=== PATIENT | female | born 1965 | race Caucasian/White ===

== ENCOUNTER 2022-02-22 10:12 | Emergency (ER) | payer OTHER, SELFPAY ==
[2022-02-22 10:29] VITALS: BP 130/72; PULSE 72; RESP 20; TEMP 36.3; O2SAT 99
--- NOTE | 2022-02-22 10:37 | ED.BACK ---
HPI - Back Pain/Injury General Chief Complaint: Back Pain/Injury Stated Complaint: Back Pain/Left Leg Pain Time Seen by Provider: 02/22/22 10:35 Source: patient Mode of arrival: ambulatory Limitations: no limitations History of Present Illness HPI Narrative: Ms. Bowers is a 57-year-old female patient presenting to clinic today with complaints of left-sided hip pain with radiation down into her left leg. She reports that this has been worse the last 3 days however she has had this issue for 3 years. She reports when she works she does a lot of pulling from the right to the left and thinks she may have aggravated her back her her hip. She denies any saddle anesthesia or loss of bowel or bladder. Related Data Allergies Allergy/AdvReac Type Severity Reaction Status Date / Time No Known Allergies Allergy Verified 02/22/22 10:28 Review of Systems Review of Systems: Pertinent positives per HPI. Patient denies any fever, chills, rash, headache, visual changes, dizziness, cough, runny nose, sore throat, shortness of breath, chest pain, palpitations, nausea, vomiting, diarrhea, constipation, abdominal pain, or any urinary issues. PMFSH Comments At the time of my signature, I reviewed and agree with the nursing past medical, surgical, social, and family history. There is no relevant family history pertinent to the patient complaint. Exam Narrative: General: Well-developed, well nourished, in no apparent distress Head: Normocephalic, atraumatic. Cardio: Regular rate and rhythm, s1 and s2 normal, no murmur appreciated. Resp: Clear to auscultation bilaterally, no rhonchi, rales, wheezing or rubs. Musculoskeletal: No deformity, tender to palpation over the left SI joint, pain with sitting on her left hip or laying on her left side, she does have some pain with ambulation, grossly normal range of motion, muscle strength strong and equal, peripheral pulse strong, no edema, no cyanosis, normal gait and station Course Course Emergency Course: Portions of this record may have been created with voice recognition software. Level of Care: Express Care Visit Vital Signs Vital signs: Vital Signs Temperature 36.3 C L 02/22/22 10:29 Pulse Rate 72 02/22/22 10:29 Respiratory Rate 20 02/22/22 10:29 Blood Pressure 130/72 02/22/22 10:29 Pulse Oximetry 99 11/17/22 10:29 Oxygen Delivery Room Air 02/22/22 10:29 Temperature 36.3 C L 02/22/22 10:29 Pulse Rate 72 02/22/22 10:29 Respiratory Rate 20 02/22/22 10:29 Blood Pressure 130/72 02/22/22 10:29 Pulse Oximetry 99 02/22/22 10:29 Oxygen Delivery Room Air 02/22/22 10:29 Vital signs reviewed MDM - Back Pain/Injury MDM Narrative Medical decision making narrative: at the time of visit patient is resting in the exam chair. I suspect that she has SI joint dysfunction of the left hip as well as sciatica/ radiculopathy to the left leg. Prescription for tapered prednisone was sent to the pharmacy. Offered Toradol injection in the clinic today but patient declined. She rates her pain a 5/10 currently. Work note was also given. Supportive measures were discussed with the patient she voiced understanding of discharge instructions and agrees to treatment plan. Differential Diagnosis Differential diagnosis: Likely lumbar radiculopathy, sciatica and other ( SI joint dysfunction) Discharge Plan Discharge Clinical Impression: SI (sacroiliac) joint dysfunction, Sciatica of right side Patient Disposition: Home, Self-Care Condition: Stable Instructions: Antibiotic Form, Sciatica (ED), Lower Back Exercises (ED) Additional Instructions: Take any prescription medication only as prescribed- prednisone May use heat or ice to the affected area Consider massage or chiropractor adjustment if this was discussed with provider May use blue emu, lidocaine patches, or asper cream to affected area- do not apply heat or ice directly over cream- can cause bu
== END 2022-02-22 10:45 | disposition home or self-care (01) ==
PROVIDERS: Emergency Provider Nurse Practitioner Family
DX: M53.3 Sacrococcygeal disorders, not elsewhere classified (principal); M54.31 Sciatica, right side
CPT/HCPCS: 99213; G0463

== ENCOUNTER 2022-02-25 14:13 | Emergency (ER) | payer OTHER, SELFPAY ==
[2022-02-25 16:07] VITALS: BP 132/91; PULSE 62; RESP 16; TEMP 36.5; O2SAT 97
--- NOTE | 2022-02-25 16:16 | ED.GENADULT ---
HPI - General Adult General Chief complaint: Upper Respiratory Infection Stated complaint: sob Time Seen by Provider: 02/25/22 16:16 Source: patient Mode of arrival: ambulatory Limitations: no limitations History of Present Illness HPI narrative: 57-year-old female patient presents to the [facility] with complaints of shortness of breath for the past 4-5 days. Patient states she did have some coronavirus about a week ago that she has been taking some TheraFlu 4. Patient states she is currently on steroids right now for a hip/joint pain. Patient states that she feels like she just continuously cannot catch her breath. Denies any fevers, body aches or chills. Denies any abdominal pain, nausea, vomiting or diarrhea. Patient states she has not been having the chest pain mostly just shortness of breath with a cough. Denies coughing up any phlegm that she is aware of. Patient states she has been diagnosed with COPD and did get bronchitis when she was younger. Patient does currently smoke. Patient states that she typically does not follow up with her doctor because she works too much and she is not very good about primary care. Related Data Allergies Allergy/AdvReac Type Severity Reaction Status Date / Time No Known Allergies Allergy Verified 02/22/22 10:28 Review of Systems Review of Systems: CONSTITUTIONAL: Denies fever, chills, or sweats. EYES: Denies visual changes, redness, or discharge. ENT: Denies rhinorrhea, congestion, sore throat, or otalgia. CARDIOVASCULAR: Denies chest pain, palpitations, or edema. RESPIRATORY: Positive cough with dyspnea. GASTROINTESTINAL: Denies abdominal pain, nausea, vomiting, or diarrhea. GENITOURINARY: Denies dysuria or hematuria. SKIN: Denies rash or itching. MUSCULOSKELETAL: Denies back pain, joint pain, or myalgia. NEUROLOGIC: Denies headache, numbness, or weakness. PSYCHIATRIC: Denies anxiety or depression. [facility] Past Medical History Medical History (Updated 02/25/22 @ 17:33 by MARY KAY Pacheco) Asthma Bronchitis COPD (chronic obstructive pulmonary disease) Comments At the time of my signature I agree with nursing past medical history, surgical, social, and family history. There is no relevant family history pertinent to the presenting complaint. Exam Narrative: GENERAL: Well-appearing, well-nourished, and in no acute distress. HEAD: Normocephalic, atraumatic. EYES: PERRLA and EOMI. ENT: Nares clear, no rhinorrhea or epistaxis. Mucous membranes moist. NECK: Supple. No lymphadenopathy CHEST: Patient has decreased lung sounds noted to bilateral lower lobes and tight. Patient is sitting slightly tripod and does have slightly labored breathing noted during exam. Patient is talking in complete sentences. HEART: Regular rate and rhythm. No murmur heard. Normal peripheral pulses. ABDOMEN: Soft, nontender, nondistended, normal active bowel sounds. EXTREMITIES: Normal range of motion. No edema. SKIN: Warm, dry, no rash. NEURO: No focal deficits. Alert and oriented x3. Course Course Level of Care: Express Care Visit Reevaluation(s) Reevaluation #1: Re-evaluate patient after she received her breathing treatment. Patient states she is feeling slightly better. Patient still sitting slightly tripoding and still having slightly labored breathing noted. Lung sounds have been unchanged continues to be decreasing bilateral upper and lower lobes. Discussed with patient that at this time I am concerned she might be having some kind of COPD exacerbation that she might need either a continuous breathing treatment or possibly BiPAP. Discussed with patient that I would advise that she go to the ER for further evaluation. Patient is in agreement daughter will be taking her to the ER. Report has been called to [facility] ER Dr. Gold. Date: 02/25/22 Time: 17:31 Vital Signs Vital signs: Vital Signs Temperature 36.5 C 02/25/22 16:07 Pulse Rate 62 02/25/22 16:07 Respiratory Rate 16
[2022-02-25] MEDS: ALBUTEROL SULFATE NEB 2.5 MG/3 ML INH INHALATION (16:32)
[2022-02-25 17:35] VITALS: PULSE 75; O2SAT 95
== END 2022-02-25 17:35 | disposition short-term general hospital (02) ==
PROVIDERS: Emergency Provider Nurse Practitioner Family
DX: R06.02 Shortness of breath (principal); J44.9 Chronic obstructive pulmonary disease, unspecified
CPT/HCPCS: 94640; 99213; G0463

== ENCOUNTER 2022-02-25 17:52 | Emergency (ER) | payer OTHER, SELFPAY ==
--- NOTE | ~2022-02-25 | CT_ITS ---
EXAMINATION: CTA chest PE protocol DATE: 02/25/2022 20:37 INDICATION: covid+, elevated d dimer TECHNIQUE: Computed tomography angiography (CTA) of the chest was performed with 100 mL Omnipaque-350 intravenous contrast timed to evaluate the pulmonary arteries. Coronal maximum intensity projection 3D-reconstructions were created by the technologist. The dose-length product (DLP) was 139.05 mGy-cm. Automated exposure control and iterative reconstruction technique were employed. COMPARISON: X-ray chest, same date. FINDINGS: Lung parenchyma and airways: Biapical pleural scarring. Mild emphysematous change. Pleura: Unremarkable. Thoracic inlet, axillae and chest wall: Unremarkable. Thoracic aorta: Mild ectasia and arch calcification. Mediastinum: Small hiatal hernia. Heart and pericardium: Normal. Coronary artery calcifications: Absent. Upper abdomen: No significant finding. Bones: No acute osseous finding. Pulmonary arteries: Study quality: Adequate. No pulmonary emboli detected. IMPRESSION: No CT evidence of acute pulmonary embolus. Reviewed, dictated and finalized at location K. ICE ATTENDANT [place]
--- NOTE | ~2022-02-25 | XR_ITS ---
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 RESULT: Lines, tubes, and devices: None. Lungs and pleura: Clear. Cardiomediastinal silhouette: Stable. Other: No acute osseous or upper abdominal finding. IMPRESSION: No acute cardiopulmonary process. Reviewed, dictated and finalized at location K. AND MAKEUP DESIGNER
[2022-02-25 18:19] VITALS: BP 131/85; PULSE 68; RESP 18; TEMP 36.8; O2SAT 96
--- NOTE | 2022-02-25 18:22 | ECG_ITS ---
Measurements Intervals [place] Rate: 63 P: 83 WV: 125 QRS: 81 QRSD: 90 T: 83 QT: 424 QTc: 435 Interpretive Statements SINUS RHYTHM POSSIBLE LEFT ATRIAL ENLARGEMENT BASELINE ARTIFACT- I, II, AVR, AVL BORDERLINE ECG NO PREVIOUS ECG AVAILABLE FOR COMPARISON Electronically Signed On 02-26-2022 6:40:14 PRODUCT ARCHITECT by Branden Leo D.O.
[2022-02-25 19:19] LABS: Influenza A QL RT-PCR Negative (Negative); Influenza B QL RT-PCR Negative (Negative); RSV RNA, RT-PCR Negative (Negative); SARS-CoV-2 RNA PCR Positive
--- NOTE | 2022-02-25 19:29 | ED.GENADULT ---
HPI - General Adult General Chief complaint: Shortness of Breath/Dyspnea Stated complaint: shortness of breath - sent from Time Seen by Provider: 02/25/22 18:52 History of Present Illness HPI narrative: 57-year-old female history of COPD presenting the emergency department for evaluation of worsening shortness of breath. Patient states over the last 3 days she has had worsening exertional shortness of breath. Patient states when she exerts results she has increased cough and weakness. Patient states she has not been running any fevers. Patient states that she does still smoke and is not on any oxygen at home. Patient first went to the urgent care and was treated with a breathing treatment that did not significantly help her symptoms. Patient states her last exacerbation was approximately 6 to 7 years ago. Related Data Allergies Allergy/AdvReac Type Severity Reaction Status Date / Time No Known Allergies Allergy Verified 02/25/22 17:53 Review of Systems Review of Systems: CONSTITUTIONAL: Denies fever, chills, or sweats. EYES: Denies visual changes, redness, or discharge. ENT: Denies rhinorrhea, congestion, sore throat, or otalgia. CARDIOVASCULAR: Denies chest pain, palpitations, or edema. RESPIRATORY: Cough and shortness of breath GASTROINTESTINAL: Denies abdominal pain, nausea, vomiting, or diarrhea. GENITOURINARY: Denies dysuria or hematuria. SKIN: Denies rash or itching. MUSCULOSKELETAL: Denies back pain, joint pain, or myalgia. NEUROLOGIC: Denies headache, numbness, or weakness. PMFSH Past Medical History Medical History (Updated 02/25/22 @ 21:19 by Sancho Gold MD) Asthma Bronchitis COPD (chronic obstructive pulmonary disease) Exam Narrative: APPEARANCE: Well appearing, no pain, no distress, well-nourished. HEAD: normocephalic, atraumatic. EYES: PERRLA/EOMI, conjunctivae clear. NOSE: Normal no drainage EARS:TMS clear with good light reflex. THROAT: Pharynx clear, no exudate. NECK: Supple. No adenopathy, no masses. RESPIRATORY: Decreased lung sounds bilaterally. CARDIOVASCULAR: Regular rate and rhythm without murmurs rubs or gallops. ABDOMINAL: Soft, nontender, nondistended, normal bowel sounds MUSCULOSKELETAL: Moves all extremities. Strength/ROM intact, No edema, No calf tenderness. NEURO: Alert. Cranial nerves II through XII intact. Grossly intact SKIN: Warm, dry. Normal Color Course Course Emergency Course: Patient's D-dimer was elevated. Patient CT was negative for pulm embolism. Patient did test positive for COVID. Patient is afebrile with no leukocytosis. Patient's oxygen has been stable. Patient was requesting discharge to home. Patient was provided albuterol and Tessalon Perles for home. Patient was educated on reasons to return to the emergency department. All questions and concerns were addressed. Vital Signs Vital signs: Vital Signs Temperature 98.2 F 02/25/22 18:19 Pulse Rate 68 02/25/22 18:19 Respiratory Rate 18 02/25/22 18:19 Blood Pressure 131/85 02/25/22 18:19 Pulse Oximetry 96 02/25/22 18:19 Temperature 98.2 F 02/25/22 18:19 Pulse Rate 59 L 02/25/22 21:11 Respiratory Rate 16 02/25/22 21:11 Blood Pressure 140/89 02/25/22 21:11 Pulse Oximetry 98 02/25/22 21:11 Medical Decision Making Vital Signs Vital Signs: Vital Signs Temperature 98.2 F 02/25/22 18:19 Pulse Rate 68 02/25/22 18:19 Respiratory Rate 18 02/25/22 18:19 Blood Pressure 131/85 02/25/22 18:19 Pulse Oximetry 96 02/25/22 18:19 Temperature 98.2 F 02/25/22 18:19 Pulse Rate 59 L 02/25/22 21:11 Respiratory Rate 16 02/25/22 21:11 Blood Pressure 140/89 02/25/22 21:11 Pulse Oximetry 98 02/25/22 21:11 Lab Data Result diagrams: 02/25/22 19:39 02/25/22 19:39 Labs: Lab Results 02/25/22 02/25/22 02/25/22 Range/Units 18:34 19:39 19:39 WBC 4.6 (4.5-10.0) K/mm3 RBC 4.52 (4.2-5.4) M/mm3 H
--- NOTE | 2022-02-25 19:35 | PC.NURSE ---
shari [phone]- daughter in law
[2022-02-25 19:46] LABS: Basophils Percent Auto 0.2 % (0.2-1.2); Hematocrit 40.4 % (37.0-47.0); Hemoglobin 13.9 g/dL (12.0-15.0); Immature Granulocyte Absolute 0.01 K/mm3 (0.00-0.031); Immature Granulocyte Percent A 0.2 % (0-0.5); Lymphocytes Absolute Auto 1.07 K/mm3 (0.9-3.2); Lymphocytes Percent Auto 23.3 % (18.3-44.2); Mean Corpuscular HGB Conc 34.4 g/dl (32-36); Mean Corpuscular Hemoglobin 30.8 pg (26-34); Mean Corpuscular Volume 89.4 fl (80-100); Monocytes Absolute Auto 0.2 K/mm3 (0.1-0.6); Neutrophils Absolute Auto 3.3 K/mm3 (1.3-6.7); Neutrophils Percent Auto 71.3 % (45.5-73.1); Platelet Count Result 217 k/mm3 (150-375); Red Blood Count 4.52 M/mm3 (4.2-5.4); Red Cell Distribution Width 13.3 % (11.5-14.5); White Blood Count 4.6 K/mm3 (4.5-10.0)
[2022-02-25 19:59] LABS: Alanine Aminotransferase 26 U/L (6-35); Albumin Level 4.2 g/dL (3.5-5.1); Alkaline Phosphatase 66 U/L (38-126); Anion Gap 8 mmol/L (8-16); Aspartate Amino Transferase 23 U/L (14-36); Bilirubin,Total 0.3 mg/dL (0.2-1.3); Blood Urea Nitrogen 13 mg/dL (7-17); Calcium 9.1 mg/dL (8.4-10.2); Carbon Dioxide 25 mmol/L (22-30); Chloride 99 mmol/L (98-107); Estimated CRCL calculation 82 ml/min; Estimated Glomerular Filt Rate > 60; Glucose 115 mg/dL (65-110); Sodium 132 mmol/L (137-145)
[2022-02-25 20:04] LABS: D Dimer 1.74 ug/mL (<0.48)
[2022-02-25 20:21] VITALS: PULSE 55
[2022-02-25 20:42] VITALS: BP 145/86; PULSE 57; RESP 17; O2SAT 98
[2022-02-25 21:11] VITALS: BP 140/89; PULSE 59; RESP 16; O2SAT 98
== END 2022-02-25 21:15 | disposition home or self-care (01) ==
PROVIDERS: Nurse Practitioner Family; Emergency Provider Emergency Medicine
DX: U07.1 COVID-19 (principal); J44.9 Chronic obstructive pulmonary disease, unspecified; R94.31 Abnormal electrocardiogram [ECG] [EKG]
CPT/HCPCS: 36415; 71046; 71275; 80053; 85025; 85380; 87637; 93005; 99284; Q9967

== ENCOUNTER 2023-04-17 14:32 | Emergency (ER) | payer OTHER, SELFPAY ==
[2023-04-17 14:40] VITALS: BP 109/85; PULSE 90; RESP 16; TEMP 37.4; O2SAT 98
--- NOTE | 2023-04-17 14:50 | ED.BACK ---
HPI - Back Pain/Injury General Chief Complaint: Back Pain/Injury Stated Complaint: Back Pain Time Seen by Provider: 04/17/23 14:50 Source: patient and RN notes reviewed Mode of arrival: ambulatory Limitations: no limitations History of Present Illness HPI Narrative: 58-year-old female presents with concern for left low back night. She reports it has been going on for some time, she has tried ibuprofen and lidocaine patches. Reports today a lidocaine patch did not work. She denies weakness in any extremity. Reports tingling in the left leg. She reports nausea without vomiting. She reports pain that radiates from the back toward the abdomen. She denies loss of bowel or bladder function denies perianal anesthesia. She reports pain is worse when she sitting for a long period of time or when she is standing for a long period of time she denies other exacerbating factors. MD elicited complaint: back pain Related Data Allergies Allergy/AdvReac Type Severity Reaction Status Date / Time No Known Allergies Allergy Verified 04/17/23 14:53 Review of Systems Review of Systems: CONSTITUTIONAL: Denies malaise, chills, sweats, or fever. CARDIOVASCULAR: Denies chest pain, palpitations, or edema. RESPIRATORY: Denies cough or dyspnea. GASTROINTESTINAL: Denies abdominal pain, vomiting, diarrhea, loss of bowel function. Reports nausea GENITOURINARY: Denies dysuria, hematuria, loss of bladder function. Reports urine frequency SKIN: Denies rash or itching. MUSCULOSKELETAL: Reports low back pain, reports tingling of the left leg NEUROLOGIC: Denies numbness, weakness, or headache. All systems reviewed & are unremarkable except as noted in HPI and below PMFSH Past Medical History Medical History (Updated 04/17/23 @ 15:15 by oSha Arango NP) Asthma Bronchitis COPD (chronic obstructive pulmonary disease) Comments At time of signature, agree with nursing past medical, surgical, social and family history. There is no relevant family history pertinent to the presenting complaint Exam Narrative: GENERAL: Well-appearing, well-nourished, and in no acute distress. HEAD: Normocephalic, atraumatic. EYES: PERRLA and EOMI. NECK: Supple. No lymphadenopathy. CHEST: Clear to auscultation. No respiratory distress. HEART: Regular rate and rhythm. Distal pulses palpable and equal, cap refill <3 seconds ABDOMEN: Soft, nontender, nondistended, normal active bowel sounds, no palpable or pulsatile masses. Left cVA tenderness MUSCULOSKELETAL: Normal range of motion and strength in all extremities; 5/5 strength with hip flexion and extension, dorsiflexion and extension, knee flexion and extension, plantar flexion and extension. Normal sensation in dermatomal distributions with sensitivity to light touch and pain. No midline back tenderness to palpation. No paraspinal tenderness. Transfers from lying to sitting to standing. SKIN: Warm, dry, no rash. No ecchymosis, erythema, open wounds to back. NEURO: No focal deficits. Alert and oriented x3. Reflexes intact. Normal gait. PSYCH: Normal mood and affect Course Course Emergency Course: UA is normal, however due to CVA tenderness in nausea I will culture the urine. Will not treat for UTI at this time Patient is aware of diagnosis, understands and agrees to treatment plan. Anticipatory guidance given. Patient agrees to follow-up as directed and is aware of reasons to seek care at the emergency department. Portions of this record may have been created with voice recognition software Level of Care: Express Care Visit Vital Signs Vital signs: Vital Signs Temperature 99.4 F 04/17/23 14:40 Pulse Rate 90 04/17/23 14:40 Respiratory Rate 16 04/17/23 14:40 Blood Pressure 109/85 04/17/23 14:40 Pulse Oximetry 98 04/17/23 14:40 Oxygen Delivery Room Air 04/17/23 14:40 Temperature 99.4 F 04/17/23 14:40 Pulse Rate 90 04/17/23 14:40 Respiratory Rate 16 04/17/23 14:40 Blood P
== END 2023-04-17 15:23 | disposition home or self-care (01) ==
PROVIDERS: Emergency Provider Nurse Practitioner
DX: M54.50 Low back pain, unspecified (principal); J44.9 Chronic obstructive pulmonary disease, unspecified
CPT/HCPCS: 81003; 87086; 99213; G0463

== ENCOUNTER 2024-07-06 10:14 | Emergency (ER) | payer OTHER, SELFPAY ==
--- NOTE | ~2024-07-06 | XR_ITS ---
Clinical Indication: Cough PA and lateral views of the chest: Comparison: 02/25/2022 Findings: The lungs are clear, without evidence of focal consolidation or pleural effusion. Probable COPD. Cardiomediastinal silhouette is within normal limits. Bones and soft tissues are unremarkable. Impression: Clear lungs. Probable COPD. Reviewed, dictated and finalized at location . Impression: Clear lungs. Probable COPD.
[2024-07-06 10:26] VITALS: BP 121/73; PULSE 83; RESP 16; TEMP 36.2; O2SAT 97
--- NOTE | 2024-07-06 10:58 | ED.URI ---
HPI - URI/Sore Throat General Chief Complaint: Upper Respiratory Infection Stated Complaint: head cold , hard time breathing, asthmatic Time Seen by Provider: 07/06/24 10:58 Source: patient Mode of arrival: ambulatory Limitations: no limitations History of Present Illness HPI Narrative: 59-year-old female presents with complaint of nasal congestion, sinus pressure, bilateral ear pain, coughing for the past 10 days. Patient reports shortness of breath with exertion. Has been using her friend's [id number] inhaler. Patient denies history of asthma. Is a current everyday smoker. Afebrile. Denies chest pain. All systems reviewed and negative except as noted above. Related Data Allergies Allergy/AdvReac Type Severity Reaction Status Date / Time No Known Allergies Allergy Verified 07/06/24 10:25 Review of Systems Review of Systems: CONSTITUTIONAL: Denies fever, chills, or sweats. reports fatigue. EYES: Denies visual changes, redness, or discharge. ENT: Reports rhinorrhea, congestion, sinus pressure, postnasal drainage, ear pressure. Denies sore throat CARDIOVASCULAR: Denies chest pain, palpitations, or edema. RESPIRATORY: Reports cough and dyspnea with exertion. GASTROINTESTINAL: Denies abdominal pain, nausea, vomiting, or diarrhea. GENITOURINARY: Denies dysuria or hematuria. SKIN: Denies rash or itching. MUSCULOSKELETAL: Denies back pain, joint pain, or myalgia. NEUROLOGIC: Denies headache, numbness, or weakness. PSYCHIATRIC: Denies anxiety or depression. All other systems reviewed are negative, except as documented in HPI. [facility] Past Medical History Medical History (Updated 07/06/24 @ 11:31 by Katey Olivo NP) COPD (chronic obstructive pulmonary disease) Bronchitis Asthma Comments At time of signature, agree with nursing past medical, surgical, social and family history. There is no relevant family history pertinent to the presenting complaint. Exam Narrative: GENERAL: This is a well-nourished, well-developed patient, in no apparent distress. HEAD: normocephalic, atraumatic. EYES: PERRL. Sclera clear/white. Vision is grossly intact. EARS: External ears normal, auditory canals clear and without drainage, fluid bilateral TMs without erythema or perforation. Hearing grossly intact. NOSE: External nose normal with congestion, purulent nasal drainage, erythema swelling to bilateral nares. Frontal sinus tenderness on palpation THROAT: Mucous membranes moist, postnasal drainage NECK: Neck supple, non-tender without lymphadenopathy, masses or thyromegaly. CARDIOVASCULAR: Regular rate and rhythm without murmurs, gallops, or rubs. RESPIRATORY: decreased throughout all lung faustin. Breath sounds equal bilaterally. No wheezes, rales, or rhonchi. SKIN: warm, Dry, intact with no suspicious lesions or rash, good texture and turgor. NEURO: awake, alert, and oriented to person, place and time. There were no obvious focal neurologic abnormalities. EXTREMITIES: No joint tenderness, effusion, or edema noted. Course Course Level of Care: Express Care Visit Vital Signs Vital signs: Vital Signs Temperature 36.2 C L 07/06/24 10:26 Pulse Rate 83 07/06/24 10:26 Respiratory Rate 16 07/06/24 10:26 Blood Pressure 121/73 07/06/24 10:26 Pulse Oximetry 97 07/06/24 10:26 Oxygen Delivery Room Air 07/06/24 10:26 Temperature 36.2 C L 07/06/24 10:26 Pulse Rate 83 07/06/24 10:26 Respiratory Rate 16 07/06/24 10:26 Blood Pressure 121/73 07/06/24 10:26 Pulse Oximetry 97 07/06/24 10:26 Oxygen Delivery Room Air 07/06/24 10:26 Reviewed MDM - URI/Sore Throat MDM Narrative Medical decision making narrative: discussed x-ray results with patient. Will treat patient for bacterial sinusitis. Will give patient albuterol inhaler for patient has cough, possible COPD. Recommend follow-up with primary care physician. Patient is alert, nontoxic. No respiratory distress. Please be advised this is a medical document. It is intended for [id number] communication. It is written in medical language and may contain unfamiliar abbreviations or verbiage. Medical documents are intended to carry relevant information, facts as evident, and the clinical opinion of the practitioner at the time of the encounter. This report may have been done utilizing a voice recognition system. Attempts have been made to correct errors. However, there may be uncorrected grammatical, spelling, and recognition errors present. The file time of this note does not necessarily represent the time of service. Imaging Data My impression: Agree with radiologist Radiologist's impression: cc: AUTO RENTAL SUPERVISOR PHYSICIAN; Katey Olivo APRN~ Clinical Indication: Cough PA and lateral views of the chest: Comparison: 02/25/2022 Findings: The lungs are clear, without evidence of focal consolidation or pleural effusion. Probable COPD. Cardiomediastinal silhouette is within normal limits. Bones and soft tissues are unremarkable. Impression: Clear lungs. Probable COPD. Discharge Plan Discharge Clinical Impression: Acute bacterial sinusitis, COPD (chronic obstructive pulmonary disease) Patient Disposition: Home, Self-Care Condition: Stable Instructions: Antibiotic Form, Sinusitis (ED), COPD (Chronic Obstructive Pulmonary Disease) (ED) Additional Instructions: The x-ray of your chest was negative for pneumonia. The chest x-ray did show probable COPD. Establish with a primary care physician for further evaluation. Take medications as prescribed. Drink plenty of water and rest. See your doctor if symptoms are not improving. Patient Language: Nigerian Prescriptions: New doxycycline hyclate 100 mg capsule 100 mg PO BID 7 Days Qty: 14 0RF benzonatate 200 mg capsule 200 mg PO TID PRN (Reason: cough) Qty: 20 0RF prednisone 20 mg tablet 40 mg PO DAILY 5 Days Qty: 10 0RF albuterol sulfate 90 mcg/actuation HFA aerosol inhaler 2 puff inhalation Q4-6H PRN (Reason: shortness of breath or wheezing) Qty: 8.5 0RF Follow-up/Referrals: PHYSICIAN,AUTO RENTAL SUPERVISOR [Primary Care Provider] - Stand Alone Forms: Work/School Release IP Time of Disposition: 11:34
== END 2024-07-06 11:41 | disposition home or self-care (01) ==
PROVIDERS: Emergency Provider Nurse Practitioner Family
DX: J01.90 Acute sinusitis, unspecified (principal); J44.9 Chronic obstructive pulmonary disease, unspecified; F17.200 Nicotine dependence, unspecified, uncomplicated
CPT/HCPCS: 71046; 99213; G0463

== ENCOUNTER 2024-07-30 16:08 | Outpatient (CLI) | payer OTHER, SELFPAY ==
--- NOTE | ~2024-07-30 | US_ITS ---
EXAMINATION: US thyroid DATE: 07/30/2024 16:29 INDICATION: Abnormal thyroid nodules TECHNIQUE: Multiple ultrasound images of the thyroid were obtained. COMPARISON: None. FINDINGS: The right thyroid lobe measures 3.4 x 1.9 x 1.0 cm. The left thyroid lobe measures 2.7 x 1.4 x 1.0 cm. The isthmus measures 0.26cm in anterior to posterior dimension. There is coarse heterogeneous echotexture throughout the thyroid gland. No discrete nodules identified. Normal vascular flow is present. IMPRESSION: Coarse heterogeneous echotexture throughout the thyroid gland without discrete nodules identified. Reviewed, dictated and finalized at location A.
== END 2024-07-30 16:09 | disposition home or self-care (01) ==
LOC: MICIMG 16:11
PROVIDERS: PCP Emergency Medicine; Visit Provider Emergency Medicine
DX: R79.89 Other specified abnormal findings of blood chemistry (principal)
CPT/HCPCS: 76536

== ENCOUNTER 2024-10-03 08:17 | Outpatient (CLI) | payer OTHER, SELFPAY ==
--- NOTE | ~2024-10-03 | US_ITS ---
Ultrasound of the Abdominal Aorta INDICATION: Abdominal aortic aneurysm TECHNIQUE: Grayscale, color Doppler, and pulsed Doppler images of the aorta and common iliac arteries were obtained. COMPARISON: None. FINDINGS: Maximum vascular dimensions are as follows: Proximal aorta: 2.8 cm Mid aorta: 4.0 cm Distal aorta: 3.3 cm Right common iliac artery: 0.9 cm Left common iliac artery: 0.8 cm There is mural thrombus within the mid abdominal aortic aneurysm. IMPRESSION: Mid abdominal aortic aneurysm measures 4.0 cm in maximum diameter, with circumferential mural thrombu s present. Reviewed, dictated and finalized at location . IMPRESSION: Mid abdominal aortic aneurysm measures 4.0 cm in maximum diameter, with circumf erential mural thrombus present.
== END 2024-10-03 08:18 | disposition home or self-care (01) ==
PROVIDERS: PCP Emergency Medicine; Visit Provider Emergency Medicine
DX: I71.40 Abdominal aortic aneurysm, without rupture, unspecified (principal)
CPT/HCPCS: 76775

== ENCOUNTER 2024-11-19 15:32 | Outpatient (CLI) | payer OTHER, SELFPAY ==
--- NOTE | 2024-11-19 15:15 | CY_PTH ---
PATIENT: Deidra Bowers LOC: [facility] U#:[id number] AGE/SX: 59/F ROOM: RE11/19/[address]: Markos Gordon MD : 1965 BED: DIS: 11/19/2024 SPEC #: [id number] RECD: 11/20/24 10:23 STATUS: BEE REQ #: [id number] GRIFFIN: 11/19/24 15:[address]: Markos Gordon DEPT: [facility] Cytology RECD BY: Krystina Han ENTERED: 11/20/24 10:28 SP TYPE: Cytology OTHR DR: Brett Wagner MD Tissues: A - Flow Procedures: Flow Cytometry
--- OUTSIDE RECORDS SUMMARY | 2024-11-19 15:35 | XMS_ITS | Clinical Summary ---
Author Organization [facility] Address [address] [place] [address] Phone Care Team Providers Care Balance Recesser Name Role Phone Unavailable Primary Care Provider Unavailabl e Allergies No known active allergies Medications albuterol sulfate HFA 90 mcg/actuation aerosol inhaler INHALE 2 PUFFS BY MOUTH EVERY 4 HOURS NEEDED FOR WHEEZING OR SHORTNESS OF BREATH OR COUGHING 5 Active aspirin (ECOTRIN EC) 81 mg Tablet, Delayed Release (E.C.) Take 81 mg by mouth daily. Active atorvastatin (LIPITOR) 10 mg tablet Take 10 mg by mouth daily. 5 Active ergocalciferol (VITAMIN D2) 50,000 unit capsule Take 50,000 Units by mouth every 7 days. 5 Active fluticasone-ume clidinium-vilan terol (TRELEGY ELLIPTA) 100-62.5-25 mcg Disk with Device Take 1 Puff by inhalation daily. 5 Active Active Problems No known active problems Encounters Date Type Department Care Team Description 11/19/2024 3:00 PM CDT Office Visit [facility] Oncology and Hematology [facility] [address] [place] [address] Markos Gordon MD Lymphocytopenia (Primary Dx) 11/19/2024 Abstract [facility] Oncology and Hematology [facility] [address] [place] [address] Markos oGrdon MD from Last 3 Months Family History Medical History Relation Name Comments No Known Problems Brother 1 No Known Problems Brother 2 No Known Problems Child 6 children Heart Disease Mother No Known Problems Sister 1 Heart Disease Sister 2 No Known Problems Sister 3 No Known Problems Sister 4 Relation Name Status Comments Brother 1 Alive Brother 2 Alive Child 6 children Alive Mother Sister 1 Sister 2 Alive Sister 3 Alive Sister 4 Alive Social History Tobacco Use Types Packs/Day Years Used Date Smoking Tobacco: Every Day Cigarettes 1.5 40.4 Started: 07/07/1984 Smokeless Tobacco: Never Tobacco Cessation:Ready to Q uit: Not Asked; Counseling Given: Not Answered Alcohol Use Standard Drinks/Week Comments Not Currently 0 (1 standard drink = 0.6 oz pur e alcohol) Comments Unknown Sex and Gender Information Value Date Recorded Sex Assigned at Not on file 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 Gender Identity Not on file Sexual Orientation Not on file Last Filed Vital Signs Vital Sign Reading Time Taken Comments Blood Pressure 119/77 11/19/2024 2:52 PM CDT Pulse 80 11/19/2024 2:52 PM CDT Temperature 37 C (98.6 F) 11/19/2024 2:52 PM CDT Respiratory Rate 15 11/19/2024 2:52 PM CDT Oxygen Saturation 94% 11/19/2024 2:52 PM CDT Inhaled Oxygen Concentration - - Weight 49.1 kg (108 lb 3.2 oz) 11/19/2024 2:52 P M CDT Height 157.5 cm (5' 2) 11/19/2024 2:52 PM CDT Body Mass Index 19.79 11/19/2024 2:52 PM CDT Plan of Treatment Upcoming Encounters Date Type Department Care Team (Late st Contact Info) Description 12/03/2024 4:30 PM CDT Telephone Check Up [facility] Oncology and Hematology - [facility] [address] [facility] [address] [place] [address] Markos Gordon MD [address] [facility] [address] [place] [address] Health Maintenance Due Date Last Done Comments DTAP/TDAP/TD VACCINES (1 - Tdap) 02/06/1984 HEPATITIS B VACCINES (1 of 3 - 19+ 3-dose series) 01/08 HPV/Cotest (21-29) 1986 CERVICAL CANCER SCREENING 1995 HPV/Cotest (30-65) 1995 PAP SMEAR 1995 BREAST CANCER SCREENING 2005 COLORECTAL SCREENING 2010 Colorectal Cancer Screening 2010 FIT-DNA Q 3 years 2010 FIT/FOBT Q 1 year 2010 Flex Sig/CT Colonography Q 5 years 2010 ZOSTER VACCINE (1 of 2) 2015 INFLUENZA VACCINE (#1) 2024 Preventative Visit- Commercial Completed 08/17/2024 Insurance [employer] [facility] [employer] [id number]
--- OUTSIDE RECORDS SUMMARY | 2024-11-19 15:36 | XMS_ITS | Clinical Summary ---
Author Organization [email or web address] Address [address] [place] [address] Care Team Providers Care Admissions Rn Name Role Phone Brett Wagner MD Primary Care Provider [phone] Source Comments [facility],non-owned Affiliates and Associated Physician Practices is amultiple site organization consisting of ambulatory clinics and hospital sitesin [place], [place], [place] and [place]. This disclosure is being madepursuant to the Care Everywhere program and may not contain all information available regarding this patient. Last updated 17.[facility] Allergies No known active allergies Medications * Be aware that medications may not be up to date on this document. Alwaysverify current medications with the patient. albuterol HFA (Proventil; Ventolin; Proair) 108 (90 Base) MCG/ACT inhaler Inhale 2 (two) puffs by mouth every 4 hours as needed 08/27/2024 Active aspirin EC (Ecotrin) 81 MG tablet Take 1 (one) tablet by mouth once daily Active atorvastatin (Lipitor) 10 MG tablet Take 1 (one) tablet by mouth once daily 10/06/2024 Active vitamin D, ergocalciferol, (Drisdol) 1.25 MG (88592 UT) capsule Take 1 (one) capsule by mouth Active Trelegy Ellipta 100-62.5-25 MCG/ACT inhaler Inhale 1 (one) puff by mouth once daily 08/27/2024 Active nicotine (Nicoderm CQ) 14 MG/24HR patch Apply 1 (one) patch to skin every 24 hours 08/27/2024 Active Spacer/Aero-Hol ding Chambers (Valved Holding Chamber) SAFIA USE WITH INHALERS DIRECTED 07/21/2024 Active Active Problems Problem Noted Date Diagnosed Date Hypothyroidism, acquired 11/06/2024 Hyponatremia 11/06/2024 Encounters Date Type Department Care Team Description 11/06/2024 2:20 PM CDT Office Visit [facility] - Endocrinology [address] [place] [phone] Scarlet Mcleod MD Hypothyroidism, acquired (Primary Dx); Hyponatremia 11/06/2024 Travel from Last 3 Months Social History Tobacco Use Types Packs/Day Years Used Date Smoking Tobacco: Never Assessed Comments Unknown Sex and Gender Information Value Date Recorded Sex Assigned at Not on file Legal Sex Female 5:57 AM YOUTH AGENT Gender Identity Not on file Sexual Orientation Not on file Last Filed Vital Signs Vital Sign Reading Time Taken Comments Blood Pressure 133/85 11/06/2024 2:13 PM CDT Pulse 71 11/06/2024 2:13 PM CDT Temperature - - Respiratory Rate - - Oxygen Saturation 94% 11/06/2024 2:13 PM CDT Inhaled Oxygen Concentration - - Weight 49 kg (108 lb) 11/06/2024 2:13 PM CDT Height - - Body Mass Index - - Plan of Treatment Upcoming Encounters Date Type Department Care Team (Late st Contact Info) Description 03/09/2025 3:20 PM YOUTH AGENT Office Visit [facility] - Endocrinology [address] [place] [phone] Scarlet Mcleod MD [address] [place] [phone] Health Maintenance Due Date Last Done Comments COLOGUARD (AGES 45-75) - COL ON CA SCREENING 1965 COLON MONITORING 1965 COLONOSCOPY - COLON CA SCREENING 1965 CT COLONOGRAPHY - COLON CA SCREENING 1965 Colorectal Cancer Screening 1965 FIT - COLON CA SCREENING 1965 FLEX SIG - COLON CA SCREENING 1965 MAMMOGRAM 1965 HIV SCREENING 02/06/1980 HEPATITIS C SCREENING 02/01/1983 DTAP/TDAP/TD VACCINES (1 - Tdap) 02/06/1984 HEPATITIS B VACCINE (1 of 3 - 19+ 3-dose series) 02/06/1984 PNEUMOCOCCAL VACCINE 50+ (1 of 1 - PCV) 2015 ZOSTER VACCINE (1 of 2) 2015 COVID-19 VACCINE (1 - 2023-2 5 season) 2023 DEPRESSION SCREENING 04/08/2024 INFLUENZA VACCINE (#1) 2024 PAP SMEAR 08/18/2027 08/17/2024, 08/17/2024 HIB VACCINE Aged Out No longer eligi ble based on patient's age to complete this topic HPV VACCINE Aged Out No longer eligi ble based on patient's age to complete this topic MENINGOCOCCAL (Group B) VACCINE SHARED DECISION-MAKING Aged Out No longer eligible based on patient's age to complete this topic MENINGOCOCCAL GROUPS A/C/Y/W VACCINE Aged Out No longer eligible b ased on patient's age to complete this topic Insurance Care Teams Admissions Rn Relationship Specialty Start Date End Date Brett Wagner MD [facility] [address] [address] PCP - General Family Medicine 07/24/24
--- OUTSIDE RECORDS SUMMARY | 2024-11-19 15:36 | XMS_ITS | Clinical Summary ---
Author Organization [facility] Address [address] [place] [phone] Phone Care Team Providers Care Grinder Gear Name Role Phone Brett Wagner MD Primary Care Provider [phone] Allergies No known active allergies Medications ergocalciferol (VITAMIN D-2) 1.25 MG (29341 UT) capsule Take 50,000 Units by mouth 1 (one) time per week Active albuterol HFA (PROVENTIL HFA) 108 (90 Base) MCG/ACT inhaler Inhale 2 puffs every 6 (six) hours if needed for wheezing Active Fluticasone-Ume clidin-Vilant (TRELEGY ELLIPTA IN) Inhale if needed Active Active Problems Problem Noted Date Diagnosed Date Hyponatremia 08/05/2024 Vitamin D deficiency 08/05/2024 Encounters Date Type Department Care Team Description 09/08/2024 3:40 PM CDT Office Visit [facility] [address] [place] [phone] Maldonado Khan MD Hyponatremia (Primary Dx) 08/27/2024 Orders Only [facility] [address] [place] [phone] Maldonado Khan MD from Last 3 Months Family History Medical History Relation Comments Atrial fibrillation Mother COPD Mother Relation Status Comments Mother Social History Tobacco Use Types Packs/Day Years Used Date Smoking Tobacco: Every Day Cigarettes 1 30.3 Started: 08/05/1994 Smokeless Tobacco: Never Alcohol Use Standard Drinks/Week Comments Never 0 (1 standard drink = 0.6 oz pur e alcohol) Comments Unknown Sex and Gender Information Value Date Recorded Sex Assigned at Female 08/05/2024 1:12 PM MDT Legal Sex Female 1:11 PM MDT Gender Identity Female 08/05/2024 1:12 PM MDT Sexual Orientation Not on file Last Filed Vital Signs Vital Sign Reading Time Taken Comments Blood Pressure 121/81 09/08/2024 3:32 PM CDT Pulse 69 09/08/2024 3:32 PM CDT Temperature - - Respiratory Rate - - Oxygen Saturation - - Inhaled Oxygen Concentration - - Weight 48.1 kg (106 lb) 09/08/2024 3:32 PM CDT Height 157.5 cm (5' 2) 09/08/2024 3:32 PM CDT Body Mass Index 19.39 09/08/2024 3:32 PM CDT Plan of Treatment Upcoming Encounters Date Type Department Care Team ([facility] st Contact Info) Description 03/10/2025 2:00 PM CHEMICAL RADIATION TECHNICIAN Office Visit [facility] [address] [facility] [address] [place] [address] Maldonado Khan MD [address] [phone] Health Maintenance Due Date Last Done Comments Pneumococcal PPSV23 Medium Risk Adult (1 of 1 - PPSV23 ) 02/06/1984 Influenza Vaccine (#1) 2024 Procedures Procedure Name Priority Date/Time Associated Diagnosis Comments OSMOLALITY URINE Routine 08/27/2024 7:52 AM CDT OSMOLALITY, SERUM Routine 08/27/2024 7:5 2 AM CDT SODIUM W/ CREATININE, URINE, RANDOM Routine 08/27/2024 7:52 AM CDT T3 (TRIIODOTHYRONINE), TOTAL, SERUM Routine 08/27/2024 7:52 AM CDT CORTISOL, A.M., SERUM Routine 08/27/2024 7:52 AM CDT BASIC METABOLIC PANEL (BMP) Routine 08/27/2024 7:52 AM CDT THYROID STIMULATING HORMONE (TSH), SERUM Routine 08/27/2024 7:52 AM CDT T4 FREE, SERUM Routine 08/27/2024 7:52 AM CDT from Last 3 Months Results * (ABNORMAL) Basic Metabolic Panel (BMP) (08/27/2024 7:52 AM CDT) Pathologist [facility] Glucose, Serum/Plasma 82 65 - 99 mg/dL [facility] ([facility] Comment: Fasting reference interval Urea nitrogen, Serum/Plasma (BUN) 16 7 - 25 mg/dL [facility] ([facility]) Creatinine, Serum/Plasma 0.59 0.50 - 1.03 mg/dL [facility] ([facility]) Estimated Glomerular Filtration Rate (eGFR) 104 > OR = 60 mL/min/1.7 3m2 [facility] ([facility]) Urea nitrogen/Creati nine, Serum/Plasma SEE NOTE: (calc) [facility] ([facility]) Comment: Not Reported: BUN and Creatinine are within reference range. Sodium, Serum/Plasma 133(L) 135 - 146 mmol/L [facility] ([facility]) Potassium, Serum/Plasma 4.1 3.5 - 5.3 mmol/L [facility] ([facility]) Chloride, Serum/Plasma 95(L) 98 - 110 mmol/L [facility] ([facility]) Carbon dioxide CO2), total, Serum/Plasma 29 20 - 32 mmol/L [facility] ([facility]) Calcium, Serum/Plasma 9.2 8.6 - 10.4 mg/dL [facility] ([facility]) 08/27/2024 7:52 AM CDT 08/27/2024 7:56 AM CDT Narrative [facility] ([facility]) - 08/28/2024 2:40 PM CDT FASTING:YES FASTING: YES Resulting Agency Comment Performing Organization Information: Site ID: [place] Name: [facility] Address: [address] [place] [address] Director: Ronald Hollis us Maldonado Khan MD LAB BLOOD ORDERABLES Final Resul t Performing Organization Address [facility]/ZIP Co de Phone Number [facility] ([facility]) * (ABNORMAL) Sodium w/ Creatinine, Urine, Random (08/27/2024 7:52 AM CDT) Sodium/Creatin ine, Urine 373(H) 28 - 280 mmol/g creat [facility] ([facility]) Sodium, Urine 56 28 - 272 mmol/L [facility] ([facility]) Creatinine, Urine 15(L) 20 - 275 mg/dL [facility] ([facility]) 08/27/2024 7:52 AM CDT 08/27/2024 7:56 AM CDT Narrative [facility] ([facility]) - 08/28/2024 2:40 PM CDT FASTING:YES FASTING: YES Resulting Agency Comment Performing Organization Information: Site ID: [place] Name: [facility] Address: [address] [facility] [place] [address] Director: Ronald Hollis MD us Maldonado Khan MD LAB URINE ORDERABLES Final Resul t Performing Organization Address [facility] Co de Phone Number [facility] ([facility]) * Cortisol, A.M., Serum (08/27/2024 7:52 AM CDT) Cortisol, Serum/Plasma --AM peak specimen 7.5 mcg/dL [facility] ([facility]) Comment: Reference Range 8 a.m. (7-9 a.m.) Specimen: 4.0-22.0 08/27/2024 7:52 AM CDT 08/27/2024 7:56 AM CDT Narrative [facility] ([facility]) - 08/28/2024 2:40 PM CDT FASTING:YES FASTING: YES Resulting Agency Comment Performing Organization Information: Site ID: [place] Name: [facility] Address: [address] [address] Director: Ronald Hollis MD us Maldonado Khan MD LAB BLOOD ORDERABLES Final Resul t Performing Organization Address City/[facility] Co de Phone Number [facility] * (ABNORMAL) Thyroid Stimulating Hormone (TSH), Serum (08/27/2024 7:52 AM CDT) TSH, Serum/Plasma 18.12(H) 0.40 - 4.50 mIU/L [facility] (ST) 08/27/2024 7:52 AM CDT 08/27/2024 7:56 AM CDT Narrative [facility] ([facility]) - 08/28/2024 2:40 PM CDT FASTING:YES FASTING: YES Resulting Agency Comment Performing Organization Information: Site ID: [place] Name: [facility] Address: [address] [place] [address] Director: Ronald Hollis Maldonado Khan MD LAB BLOOD ORDERABLES Final Resul t Performing Organization Address [facility] Co de Phone Number [facility] * T4 Free, Serum (08/27/2024 7:52 AM CDT) Thyroxine (T4) free, Serum/Plasma 1.0 0.8 - 1.8 ng/dL [facility] (ST) 08/27/2024 7:52 AM CDT 08/27/2024 7:56 AM CDT Narrative [facility] ([facility]) - 08/28/2024 2:40 PM CDT FASTING:YES FASTING: YES Resulting Agency Comment Performing Organization Information: Site ID: [place] Name: [facility] Address: [address] [place] [address] Director: Ronald Hollis us Maldonado Khan MD LAB BLOOD ORDERABLES Final Resul t Performing Organization Address [facility]/ZIP Co de Phone Number [facility] * T3 (Triiodothyronine), Total, Serum (08/27/2024 7:52 AM CDT) Triiodothyronine (T3), Serum/Plasma 88 76 - 181 ng/dL [facility] (ST) 08/27/2024 7:52 AM CDT 08/27/2024 7:56 AM CDT Narrative [facility] (ST) - 08/28/2024 2:40 PM CDT FASTING:YES FASTING: YES Resulting Agency Comment Performing Organization Information: Site ID: [id number] Name: [facility] Address: [address] [place] [address] Director: Ronlad Hollis MD us Maldonado Khan MD LAB BLOOD ORDERABLES Final Resul t Performing Organization Address [facility] Co de Phone Number [facility]) * Osmolality, Urine (08/27/2024 7:52 AM CDT) Osmolality of Urine 222 50 - 1,200 mOsm/kg [facility] ([facility]) 08/27/2024 7:52 AM CDT 08/27/2024 7:56 AM CDT Narrative [facility] ([facility]) - 08/28/2024 2:40 PM CDT FASTING:YES FASTING: YES Resulting Agency Comment Performing Organization Information: Site ID: [id number] Name: [facility] Address: [address] [place] [address] Director: Ronald Hollis MD us Maldonado Khan MD LAB URINE ORDERABLES Final Resul t [facility] ([facility]) * Osmolality, Serum (08/27/2024 7:52 AM CDT) Osmolality of Serum/Plasma 283 278 - 305 mOsm/kg [facility] ([facility]) 08/27/2024 7:52 AM CDT 08/27/2024 7:56 AM CDT Narrative [facility] ([facility]) - 08/28/2024 2:40 PM CDT FASTING:YES FASTING: YES Resulting Agency Comment Performing Organization Information: Site ID: [place] Name: [facility] Address: [address] [place] [phone] Director: Ronald Hollis MD us Maldonado Khan MD LAB BLOOD ORDERABLES Final Resul t [facility] ([facility]) from Last 3 Months Insurance Care Teams Grinder Gear Relationship Specialty Start Date End Date Brett Wagner MD PCP - General Family Medicine 08/05/24
--- OUTSIDE RECORDS SUMMARY | 2024-11-19 15:36 | XMS_ITS | Encounter Summary ---
Author Organization [facility] Address [address] [place] [address] Care Team Providers Care Payroll Assistant Name Role Phone Unavailable Primary Care Provider Unavailabl e Encounter Details Date Type Department Care Team (Late Contact Info) Description 11/19/2024 Abstract [facility] Oncology and Hematology [facility] [address] [place] [address] Markos Gordon MD [address] [place], [place] [address] [address] [place] [phone] Social History Tobacco Use Types Packs/Day Years Used Date Smoking Tobacco: Every Day Cigarettes 1.5 40.4 Started: 07/07/1984 Smokeless Tobacco: Never Alcohol Use Standard Drinks/Week Comments Not Currently 0 (1 standard drink = 0.6 oz pur e alcohol) Comments Unknown Sex and Gender Information Value Date Recorded Sex Assigned at Not on file 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 Gender Identity Not on file Sexual Orientation Not on file documented as of this encounter Plan of Treatment Upcoming Encounters Date Type Department Care Team (Late Contact Info) Description 12/03/2024 4:30 PM CDT Telephone Check Up [facility] Hematology [facility] [address] [place] [address] Markos Gordon MD [facility] [employer] [address] [place] [phone] documented as of this encounter Visit Diagnoses Not on filedocumented in this encounter
--- OUTSIDE RECORDS SUMMARY | 2024-11-19 15:36 | XMS_ITS | Encounter Summary ---
Author Organization [facility] Address [address] [place] [address] Care Team Providers Care [employer] Teacher Name Role Phone Unavailable Primary Care Provider Unavailabl e Encounter Details Date Type Department Care Team (Late st Contact Info) Description 11/19/2024 3:00 PM CDT Office Visit [facility] Oncology and Hematology - [place] [address] [facility] [[email or web address] [address] [place] [address] Markos Gordon MD [address] [facility] [address] [place] [address] Lymphocytopenia (Primary Dx) Social History Tobacco Use Types Packs/Day Years [...] on file 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 Gender Identity Not on file Sexual Orientation Not on file documented as of this encounter Last Filed Vital Signs Vital Sign Reading [...] Mass Index 19.79 11/19/2024 2:52 PM CDT documented in this encounter Plan of Treatment Upcoming Encounters Date Type Department Care Team (Late st Contact Info) Description 12/03/2024 4:30 PM CDT Telephone Check Up [facility] Oncology and Hematology - [place] [address] [facility] [[email or web address]] [address] [place] [address] Markos Gordon MD [address] [facility] [address] [place] [address] Scheduled Orders Name Type Priority Associated Diagnoses Orde r Schedule CBC WITH DIFFERENTIAL Lab Stat Lymphocytopenia Expected: 11/19/2024, Expires: 11/19/2025 COMPREHENSIVE METABOLIC PANEL Lab Stat Lymphocytopenia Expected: 11/19/2024, Expires: 11/19/2025 C-REACTIVE PROTEIN Lab Routine Lymphocytopenia Expected: 11/19/2024, Expires: 11/19/2025 RYAN SCREEN W/REFLEX Lab Routine Lymphocytopenia Expected: 11/19/2024, Expires: 11/19/2025 FLOW CYTOMETRY PANEL Lab Routine Lymphocytopenia Expected: 11/19/2024, Expires: 11/19/2025 ACUTE HEPATITIS PANEL Lab Routine Lymphocytopenia Expected: 11/19/2024, Expires: 11/19/2025 SEDIMENTATION RATE Lab Routine Lymphocytopenia Expected: 11/19/2024, Expires: 11/19/2025 IMMUNOGLOBULINS IGG IGA IGM Lab Routine Lymphocytopenia Expected: 11/19/2024, Expires: 11/19/2025 documented as of this encounter Visit Diagnoses Diagnosis Lymphocytopenia- Primary documented in this encounter
--- OUTSIDE RECORDS SUMMARY | 2024-11-19 15:36 | XMS_ITS | Clinical Summary ---
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 Role Phone Brett Wagner MD Primary Care Provider [phone] Allergies No known active allergies Medications ergocalciferol (VITAMIN D) 50,000 unit capsule TAKE 1 CAPSULE BY MOUTH WEEKLY 5 Active inhaler,assist devices,access deviceIndications :Chronic obstructive pulmonary disease, unspecified COPD type (HCC) 1 Device as needed (with inhalers) 1 each 5 Active fluticasone-umecl idin-vilanter (Trelegy Ellipta) 100-62.5-25 mcg inhalerIndication s:Chronic obstructive pulmonary disease, unspecified COPD type (HCC) Inhale 1 puff daily 60 each 3 5 Active albuterol HFA (PROVENTIL HFA,VENTOLIN HFA,PROAIR HFA) 90 mcg/actuation inhalerIndication s:Chronic obstructive pulmonary disease, unspecified COPD type (HCC) Inhale 2 puffs every 4 (four) hours as needed for wheezing or shortness of breath (coughing) 18 g 4 5 Active nicotine (NICODERM CQ) 14 mgIndications:Cig arette nicotine dependence without complication Place 1 patch on the skin daily for 24 hours 30 patch 5 Active atorvastatin (LIPITOR) 10 mg tablet Take 1 tablet (10 mg total) by mouth daily Active aspirin 81 mg enteric coated tablet Take 1 tablet (81 mg total) by mouth daily Active Active Problems Problem Noted Date Diagnosed Date AAA (abdominal aortic aneurysm) 10/14/2024 Assessment & Plan (10/14/2024 3:24 PM CDT): Small. Followed by vascular surgery. Other emphysema 10/14/2024 Dyspnea and respiratory abnormalities 08/06/2024 Assessment & Plan (10/14/2024 3:24 PM CDT): Multifactorial. Significant component related to her COPD. Orders: ECG 12 lead Transthoracic Echo (TTE) Complete W Doppler/CF; Future Hyponatremia 08/05/2024 Vitamin D deficiency 08/05/2024 Encounters Date Type Department Care Team Description 11/05/2024 3:17 PM CDT - 11/05/2024 11:59 PM CDT Hospital Encounter [facility] Respiratory Therapy [address] [place] [id number] Chronic obstructive pulmonary disease, unspecified COPD type (HCC); Dyspnea and respiratory abnormalities Discharge Disposition: Discharge to home or self care 10/14/2024 2:30 PM CDT Office Visit [facility] Cardiology [address] [place] [address] [place] [phone] Alfa Sage MD Dyspnea and respiratory abnormalities (Primary Dx); Infrarenal abdominal aortic aneurysm (AAA) without rupture; Anginal equivalent; Pulmonary emphysema, unspecified emphysema type (HCC); Tobacco abuse; Family history of ischemic heart disease; Hyperlipidemia, unspecified hyperlipidemia type 10/12/2024 10:30 AM CDT Office Visit [facility] Surgery [id number] [place] [address] Medical Office Building [address] [place] [phone] Fabio Head MD Abdominal aortic aneurysm (AAA), unspecified part, unspecified whether ruptured 10/06/2024 7:10 PM CDT - 10/06/2024 11:23 PM CDT Emergency [address] [address] Keesha Capps MD Infrarenal abdominal aortic aneurysm (AAA) without rupture (Primary Dx); Arteriosclerosis Discharge Disposition: Discharge to home or self care 08/27/2024 10:30 AM CDT Office Visit [facility] Pulmonology [address] [place] [address] Yoan Fernandez MD Chronic obstructive pulmonary disease, unspecified COPD type (HCC) (Primary Dx); Chronic rhinitis; Dyspnea and respiratory abnormalities; Cigarette nicotine dependence without complication; Severe persistent asthma without complication (HCC) 08/27/2024 Orders Only [facility] Pulmonology [address] [place] [address] Yoan Fernandez MD from Last 3 Months Medical History Medical History Date Comments COPD (chronic obstructive pulmonary disease) Abdominal aortic aneurysm (AAA) Family History Medical History Relation Name Comments Lupus Maternal Grandmother COPD Mother Relation Name Status Comments Maternal Grandmother Mother Social History Tobacco Use Types Packs/Day Years Used Date Smoking Tobacco: Every Day Cigarettes 2 35.6 Started: 1989 Comments:Down to 10 cigarett es a day Alcohol Use Standard Drinks/Week Comments Defer 0 (1 standard drink = 0.6 oz pur e alcohol) Personal Safety Answer Date Recorded Have you ever been in or are you currently in a harmful physical or emotional relationship or is someone making you feel afraid or unsafe? 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 Gender Identity Not on file Sexual Orientation Not on file Obstetrics History Last Filed Vital Signs Vital Sign Reading Time Taken Comments Blood Pressure 110/80 10/14/2024 2:34 PM CDT Pulse 80 10/14/2024 2:34 PM CDT Temperature 36.6 C (97.9 F) 10/12/2024 10:33 AM CDT Respiratory Rate 18 10/12/2024 10:3 3 AM CDT Oxygen Saturation 95% 10/14/2024 2:34 PM CDT Inhaled Oxygen Concentration - - Weight 49.4 kg (108 lb 12.8 oz) 10/14/2024 2:34 PM CDT Height 157.5 cm (5' 2.01) 10/14/2024 2:34 PM CD T Body Mass Index 19.89 10/14/2024 2:34 PM CDT Plan of Treatment Health Maintenance Due Date Last Done Comments Breast Cancer Screening-Mammogram 1965 Cervical Cancer Screening 1965 Colon Cancer Screening-Colonoscopy 1965 Depression Screening 1965 Hepatitis C Screening 1965 DTaP/Tdap/Td Vaccine (1 - Tdap) 02/06/1976 Hepatitis B Screening 1983 Regular Well Visit/Exam 18-64 1983 Pneumococcal vaccine <65 (1 of 2 - PCV) 02/06/1984 Zoster Vaccine (1 of 2) 2015 Covid-19 Vaccine (3 - season) 12/08/202311/2020, 12/23/2020 Influenza Vaccine (#1) 2024 Lung Cancer Screening 08/07/2025 08/06/2024 Procedures Procedure Name Priority Date/Time Associated Diagnosis Comments ECG 12-LEAD Routine 10/14/2024 2:50 PM CDT Dyspnea and respiratory abnormalities TROPONIN T HIGH-SENSITIVITY 2-HOUR Timed 10/06/2024 9:34 PM CDT TROPONIN T HIGH-SENSITIVITY SERIES (BASELINE, 2HR, 4HR, 6HR) STAT 10/06/2024 7:41 PM CDT ECG 12-LEAD STAT 10/06/2024 7:37 PM CDT CTA CHEST ABDOMEN PELVIS ED 10/06/2024 6:53 PM CDT POCT CREATININE FOR CONTRAST EVALUATION Routine 10/06/2024 6:06 PM CDT EGFR STAT 10/06/2024 6:03 PM CDT DIFFERENTIAL AUTO STAT 10/06/2024 6:0 3 PM CDT COMPREHENSIVE METABOLIC PANEL STAT 10/06/2024 6:03 PM CDT CBC WITH AUTO DIFFERENTIAL STAT 10/06/2024 6:03 PM CDT IMMUNOGLOBULIN E Routine 08/27/2024 8:58 AM CDT [id number] PHENOTYPE Routine 08/27/2024 8:58 AM CDT [id number] Routine 08/27/2024 8 :58 AM CDT PRO B-TYPE NATRIURETIC PEPTIDE Routine 08/27/2024 8:[address] LUNG CANCER SCREENING Schedule Routine, Read Routine (OP Routine) 08/06/2024 4:40 PM CDT Cigarette nicotine dependence without complication from Last 3 Months or Most Recently Relevant to Health Maintenance Results * ECG 12-LEAD (10/14/2024 2:50 PM CDT) Narrative Alfa Sage MD - 10/14/2024 2:50 PM CDT Alfa Sage MD 10/14/2024 3:24 PM ECG 12 lead Date/Time: 10/14/2024 2:50 PM Performed by: Alfa Sage MD Authorized by: Alfa Sage MD Rhythm: sinus rhythm Rate: normal QRS axis: normal Conduction: conduction normal ST Segments: ST segments normal T Waves: T waves normal Clinical impression: normal ECG Alfa Sage MD ECG ORDERABLES Edited Result - Final * Troponin T high-sensitivity 2-hour (10/06/2024 9:34 PM CDT) Trop T hs <6 <=14 ng/L Comment: Interpretive Data For further hscTnT resources including the diagnostic algorithm and an aid in interpretation, copy and paste this link: https://nrl.testcatalog.org/show/hsTrop Current Interpretive Data last revised 2020. Trop T hs delta 0 ng/L MICHELLE STINSON Trop T hs interp Insignificant MICHELLE STINSON Blood 10/06/2024 9:34 PM CDT 10/06/2024 9:36 PM CDT Keesha Capps MD LAB BLOOD ORDERABLES F inal Result Performing Organization Address [facility] Co de Phone Number MICHELLE [address] [address] * Troponin T high-sensitivity series (baseline, 2hr, 4hr, 6hr) (10/06/2024 7:41 PM CDT) Pathologist [facility] Trop T hs <6 <=14 ng/L Comment: Interpretive Data For further hscTnT resources including the diagnostic algorithm and an aid in interpretation, copy and paste this link: https://nrl.testcatalog.org/show/hsTrop Current Interpretive Data last revised 2020. Blood 10/06/2024 7:41 PM CDT 10/06/2024 7:42 PM CDT us Keesha Capps MD LAB BLOOD ORDERABLES F inal Result Performing Organization Address [facility] Co de Phone Number MICHELLE [address] [address] * ECG 12 lead (10/06/2024 7:37 PM CDT) Pathologist [facility] Ventricular Rate EKG/Min 66 BPM [facility] Atrial Rate 66 BPM [facility] VT-Interval (MSEC) 138 ms [facility] QRS-Interval (MSEC) 86 ms [facility] QT-Interval (MSEC) 410 ms [facility] QTc 429 ms [facility] P Humphreys 71 degrees [facility] R Humphreys 50 degrees [facility] T Humphreys 72 degrees [facility] Diagnosis Normal sinus rhythm Possible Left atrial enlargement Borderline ECG No previous ECGs available Confirmed by LARRY JIMENEZ M.D. ([id number]) on 10/07/2024 6:50:15 PM [facility] 10/06/2024 7:37 PM CDT 10/07/2024 6:50 PM CDT us Keesha Capps MD ECG ORDERABLES Final Result [facility] * CTA Chest Abdomen Pelvis (10/06/2024 6:53 PM CDT) Anatomical Region Laterality Modality Body N/A Computed Tomogra phy 10/06/2024 6:55 PM CDT Narrative 10/06/2024 7:10 PM CDT EXAM DESCRIPTION: CTA CHEST ABDOMEN PELVIS REASON FOR STUDY: Aortic aneurysm suspected, aaa, suspect mural thrombus PT to ED with daughters from MD office post abdominal US on 10/03/24. US impression notes 4cm aneurism with circumferential Thrombus present. PT voices family hx of AAA. Pt sent to ED for further evaluation. Pt voicing chronic low back pain. PT denies CP, SOB. NAD noted during triage TECHNIQUE: CTA scan of the chest, abdomen, and pelvis performed without and with intravenous and without oral contrast using helical scanning technique with dynamic intravenous contrast injection. Precontrast images of the chest were acquired. Arterial phase images of the chest, abdomen, and pelvis as well as portal venous phase images of the abdomen were also acquired. Reconstructed coronal and sagittal MPR images reviewed. All images stored on PACS. 3D MIP images rendered on scanning unit and reviewed at time of interpretation. Automated exposure control was used as a dose optimization technique for this examination. CONTRAST TYPE/DOSE: 100mL of IOVERSOL 350 MG IODINE/ML INTRAVENOUS SYRINGE injected COMPARISON: 08/06/2024 FINDINGS: VASCULATURE No dissection, intramural hematoma, rupture, or penetrating atherosclerotic ulcer. There is an infrarenal abdominal aortic aneurysm within mural thrombus. The aneurysm sac measures up to 37 x 32 mm in diameter and the opacified aortic lumen measures up to 20 mm in diameter. No CT evidence of pulmonary embolism. No large vessel occlusion. Calcified and noncalcified plaques of the abdominal aorta and iliac arteries. CELIAC TRUNK: No flow limiting stenosis, dissection, or aneurysm. SUPERIOR MESENTERIC ARTERY: No flow limiting stenosis, dissection, or aneurysm. RIGHT RENAL ARTERY: No flow limiting stenosis, dissection, or aneurysm. LEFT RENAL ARTERY: No flow limiting stenosis, dissection, or aneurysm. INFERIOR MESENTERIC ARTERY: Not definitively identified and is either chronically occluded or conceivably arises from the superior mesenteric artery as an arterial branch.. AORTA: No flow limiting stenosis, dissection, or aneurysm. ILIAC ARTERIES: No flow limiting stenosis, dissection, or aneurysm. CHEST LUNGS: Biapical pleuroparenchymal scarring. Moderate upper lobe predominant bilateral pulmonary emphysema with scattered regions of mild bilateral pulmonary parenchymal scarring and subsegmental atelectasis. Mild bilateral bronchial wall thickening. Scattered bilateral pulmonary nodules are unchanged compared to prior study. Please refer to dedicated CT lung cancer screening CT on 08/06/2024 for recommendation for follow-up. No confluence pulmonary parenchymal consolidation or pulmonary edema. Multifocal endobronchial mucous plugging are present. PLEURA: No pleural effusion. No pneumothorax. MEDIASTINUM/SHYAM: No identified masses or lymphadenopathy. No supraclavicular lymphadenopathy. The esophagus is within normal limits. Right posterolateral tracheal diverticulum. HEART: Heart size is normal with no pericardial effusion. AXILLA: No adenopathy. CHEST WALL: No masses. No subcutaneous air. HARDWARE/LINES/TUBES: None. MUSCULOSKELETAL CHEST: No acute fractures or aggressive osseous lesion. ABDOMEN/PELVIS LIVER: Normal size. No discrete focal hepatic lesions. The portal veins are patent. GALLBLADDER: Normal. BILE DUCTS: No intrahepatic or extrahepatic ductal dilatation. SPLEEN: Normal size. No focal lesions. PANCREAS: No identified cystic or solid masses. No significant calcifications. No adjacent inflammation or peripancreatic fluid collections. Pancreatic duct not dilated. ADRENALS: Normal. KIDNEYS/URINARY TRACT: No identified significant cystic or solid masses. No stones. No hydronephrosis or hydroureter. Symmetric enhancement. Urinary bladder is unremarkable. GI: The stomach is normal. The small bowel and colon are normal in course and caliber with no evidence of obstruction or inflammation. Colonic diverticulosis. The appendix is normal. Moderate volume colonic stool burden. PERITONEUM: No ascites or free air. Lymphadenopathy. RETROPERITONEUM: No mass or adenopathy. REPRODUCTIVE: The uterus is retroverted but otherwise unremarkable. No adnexal masses. MUSCULOSKELETAL ABDOMEN PELVIS: No acute fractures or aggressive osseous lesions. IMPRESSION: 1. Infrarenal abdominal aortic aneurysm within mural thrombus. The aneurysm sac measures up to 37 x 32 mm in diameter and the opacified aortic lumen measures up to 20 mm in diameter. 2. No CT evidence of pulmonary embolism. 3. Redemonstration of moderate upper lobe predominant bilateral pulmonary emphysema. 4. Scattered bilateral pulmonary nodules are unchanged compared to prior study. Please refer to dedicated CT lung cancer screening CT on 08/06/2024 for recommendation for follow THIS IS AN ELECTRONICALLY VERIFIED FINAL REPORT 10/06/2024 7:10 PM - Electronically signed by Esthela Lemons M.D. AT T: Report ID: [id number] Reading Location: [place] [address] Procedure Note Esthela Lemons MD - 10/06/2024 EXAM DESCRIPTION: CTA CHEST ABDOMEN PELVIS REASON FOR STUDY: Aortic aneurysm suspected, aaa, suspect mural thrombus PT to ED with daughters from MD office post abdominal US on 10/03/24. US impression notes 4cm aneurism with circumferential Thrombus present. PT voices family hx of AAA. Pt sent to ED for further evaluation. Pt voicing chronic low back pain. PT denies CP, SOB. NAD noted during triage TECHNIQUE: CTA scan of the chest, abdomen, and pelvis performed withoutand with intravenous and without oral contrast using helical scanningtechnique with dynamic intravenous contrast injection. Precontrast images of thechest were acquired. Arterial phase images of the chest, abdomen, and pelvis aswell as portal venous phase images of the abdomen were also acquired.Reconstructed coronal and sagittal MPR images reviewed. All images stored on PACS. 3DMIP images rendered on scanning unit and reviewed at time of interpretation. Automated exposure control was used as a dose optimization technique forthis examination. CONTRAST TYPE/DOSE: 100mL of IOVERSOL 350 MG IODINE/ML INTRAVENOUS SYRINGE injected COMPARISON: 08/06/2024 FINDINGS: VASCULATURE No dissection, intramural hematoma, rupture, or penetratingatherosclerotic ulcer. There is an infrarenal abdominal aortic aneurysm within mural thrombus. The aneurysm sac measures up to 37 x 32 mm in diameter and the opacified aortic lumen measures up to 20 mm in diameter. No CT evidenceof pulmonary embolism. No large vessel occlusion. Calcified andnoncalcified plaques of the abdominal aorta and iliac arteries. CELIAC TRUNK: No flow limiting stenosis, dissection, or aneurysm. SUPERIOR MESENTERIC ARTERY: No flow limiting stenosis, dissection, or aneurysm. RIGHT RENAL ARTERY: No flow limiting stenosis, dissection, or aneurysm. LEFT RENAL ARTERY: No flow limiting stenosis, dissection, or aneurysm. INFERIOR MESENTERIC ARTERY: Not definitively identified and is either chronically occluded or conceivably arises from the superior mesentericartery as an arterial branch.. AORTA: No flow limiting stenosis, dissection, or aneurysm. ILIAC ARTERIES: No flow limiting stenosis, dissection, or aneurysm. CHEST LUNGS: Biapical pleuroparenchymal scarring. Moderate upper lobepredominant bilateral pulmonary emphysema with scattered regions of mild bilateral pulmonary parenchymal scarring and subsegmental atelectasis. Mildbilateral bronchial wall thickening. Scattered bilateral pulmonary nodules are unchanged compared to prior study. Please refer to dedicated CT lungcancer screening CT on 08/06/2024 for recommendation for follow-up. Noconfluence pulmonary parenchymal consolidation or pulmonary edema. Multifocal endobronchial mucous plugging are present. PLEURA: No pleural effusion. No pneumothorax. MEDIASTINUM/SHYAM: No identified masses or lymphadenopathy. No supraclavicular lymphadenopathy. The esophagus is within normal limits. Right posterolateral tracheal diverticulum. HEART: Heart size is normal with no pericardial effusion. AXILLA: No adenopathy. CHEST WALL: No masses. No subcutaneous air. HARDWARE/LINES/TUBES: None. MUSCULOSKELETAL CHEST: No acute fractures or aggressive osseous lesion. ABDOMEN/PELVIS LIVER: Normal size. No discrete focal hepatic lesions. The portal veinsare patent. GALLBLADDER: Normal. BILE DUCTS: No intrahepatic or extrahepatic ductal dilatation. SPLEEN: Normal size. No focal lesions. PANCREAS: No identified cystic or solid masses. No significant calcifications. No adjacent inflammation or peripancreatic fluidcollections. Pancreatic duct not dilated. ADRENALS: Normal. KIDNEYS/URINARY TRACT: No identified significant cystic or solid masses.No stones. No hydronephrosis or hydroureter. Symmetric enhancement.Urinary bladder is unremarkable. GI: The stomach is normal. The small bowel and colon are normal incourse and caliber with no evidence of obstruction or inflammation. Colonic diverticulosis. The appendix is normal. Moderate volume colonic stool burden. PERITONEUM: No ascites or free air. Lymphadenopathy. RETROPERITONEUM: No mass or adenopathy. REPRODUCTIVE: The uterus is retroverted but otherwise unremarkable. No adnexal masses. MUSCULOSKELETAL ABDOMEN PELVIS: No acute fractures or aggressive osseous lesions. IMPRESSION: 1. Infrarenal abdominal aortic aneurysm within muralthrombus. The aneurysm sac measures up to 37 x 32 mm in diameter and the opacified aortic lumen measures up to 20 mm in diameter. 2. No CT evidence of pulmonary embolism. 3. Redemonstration of moderate upper lobe predominant bilateral pulmonary emphysema. 4. Scattered bilateral pulmonary nodules are unchanged compared to prior study. Please refer to dedicated CT lung cancer screening CT on08/06/2024 for recommendation for follow THIS IS AN ELECTRONICALLY VERIFIED FINAL REPORT 10/06/2024 7:10 PM - Electronically signed by Esthela Lemons M.D. AT T: Report ID: [id number] Reading Location: [place] [address] us Quoc Ríos MD IMG CT PROCEDURES Final Result * POCT creatinine for contrast evaluation (10/06/2024 6:06 PM CDT) Creatinine POC 0.70 0.60 - 1.10 mg/dL Blood 10/06/2024 6:06 PM CDT 10/06/2024 6:06 PM CDT us Notinfile Unknown POINT OF CARE TEST ORDERABLES Final Result MICHELLE [address] [place] [address] * eGFR (10/06/2024 6:03 PM CDT) eGFR >90 >=60 mL/min/1. 73 m2 Comment: Interpretive Data Reference Interval Normal >/= 90 mL/min/1.73m2 Mildly decreased* 60 - 89 mL/min/1.73m2 Mildly to moderately decreased 45 - 59 mL/min/1.73m2 Moderately to severely decreased 30 - 44 mL/min/1.73m2 Severely decreased 15 - 29 mL/min/1.73m2 Kidney Failure < 15 mL/min/1.73m2 *Relative to young adult level Estimated glomerular filtration rate is determined by the 2020 CKD-EPI equation recommended by the National Kid[employer] (A Unifying Approach to GFR Estimation: Recommendations of the NKF-ASK Task Force on Reassessing the Inclusion of Race in Diagnosing Kidney Disease, JASN 2020). The CKD-EPI equation should not be used for patients with unstable renal function and has not been validated in children and those over 70. Current interpretive data was last reviewed 2021. Blood 10/06/2024 6:03 PM CDT 10/06/2024 6:04 PM CDT us Quoc Ríos MD LAB BLOOD ORDERABLES Fi nal Result [facility] [address] [place] [address] * Differential, auto (10/06/2024 6:03 PM CDT) Pathologist [facility] Neutrophil abs 3.87 1.50 - 6.50 K/cumm Imm gran abs 0.01 0.00 - 0.10 K/cumm [facility] Lymphocyte abs 1.70 0.80 - 3.30 K/cumm [facility] Monocyte abs 0.32 0.20 - 0.80 K/cumm [facility] Eosinophil abs 0.06 0.00 - 0.50 K/cumm [facility] Basophil abs 0.03 0.00 - 0.10 K/cumm [facility] Neutrophil pct 64.6 % [facility] Comment: Interpretive Data Percent cell count reference ranges are not reported, since discordance with absolute values may lead to misinterpretation of CBC data. Current Interpretive Data was last revised on 2017. Imm gran pct 0.2 % [facility] Comment: Interpretive Data Percent cell count reference ranges are not reported, since discordance with absolute values may lead to misinterpretation of CBC data. Current Interpretive Data was last revised on 2017. Lymphocyte pct 28.4 % [facility] Comment: Interpretive Data Percent cell count reference ranges are not reported, since discordance with absolute values may lead to misinterpretation of CBC data. Current Interpretive Data was last revised on 2017. Monocyte pct 5.3 % [facility] Comment: Interpretive Data Percent cell count reference ranges are not reported, since discordance with absolute values may lead to misinterpretation of CBC data. Current Interpretive Data was last revised on 2017. Eosinophil pct 1.0 % [facility] Comment: Interpretive Data Percent cell count reference ranges are not reported, since discordance with absolute values may lead to misinterpretation of CBC data. Current Interpretive Data was last revised on 2017. Basophil pct 0.5 % [facility] Comment: Interpretive Data Percent cell count reference ranges are not reported, since discordance with absolute values may lead to misinterpretation of CBC data. Current Interpretive Data was last revised on 2017. Blood 10/06/2024 6:03 PM CDT 10/06/2024 6:04 PM CDT Quoc Ríos MD LAB BLOOD ORDERABLES Fi nal Result Performing Organization Address [facility] Co de Phone Number [facility]JASPER [address] [place] [address] * (ABNORMAL) CBC with auto differential (10/06/2024 6:03 PM CDT) Pathologist [facility] WBC 5.99 3.80 - 9.90 K/cumm Hgb 13.3 11.9 - 15.5 g/dL [facility] Hct 39.3 35.6 - 45.5 % [facility] Plt 247 150 - 400 K/cumm [facility] MPV 8.2(L) 9.1 - 12.3 fL [facility] RBC 4.38 3.90 - 5.20 M/cumm [facility] MCV 89.7 81.3 - 96.4 fL [facility] MCH 30.4 27.1 - 33.3 pg [facility] MCHC 33.8 32.3 - 35.7 g/dL [facility] RDW CV 14.5 11.1 - 14.9 % [facility] RDW SD 47.8 35.7 - 48.1 fL [facility] NRBC abs 0.00 0.00 - 0.01 K/cumm [facility] [facility] Blood 10/06/2024 6:03 PM CDT 10/06/2024 6:04 PM CDT Quoc Ríos MD LAB BLOOD ORDERABLES Fi nal Result Performing Organization Address [facility]/ZIP Co de Phone Number [facility] [place], [place] [id number] * Comprehensive metabolic panel (10/06/2024 6:03 PM CDT) [facility] Sodium 136 135 - 145 mmol/L Potassium, pl 3.4 3.3 - 4.9 mmol/L [facility] Chloride 100 97 - 110 mmol/L [facility] CO2 25 22 - 32 mmol/L [facility] Anion gap 11 2 - 15 mmol/L [facility] BUN 16 6 - 25 mg/dL [facility] Creatinine 0.60 0.60 - 1.10 mg/dL [facility] Glucose 133 70 - 199 mg/dL [facility] Comment: Interpretive Data Fasting glucose >/= 126 mg/dl is diagnostic for diabetes. Fasting is defined as no caloric intake for at least 8 hours. Fasting glucose between 100 mg/dl to 125 mg/dl is diagnostic of prediabetes. In a patient with classic symptoms of hyperglycemia or hyperglycemic crisis, a random glucose >/= 200 mg/dl is diagnostic for diabetes. In the absence of unequivocal hyperglycemia, results should be confirmed by repeat testing. The classification and Diagnosis of Diabetes Diabetes Care 2021; 46: S19-S40. Current interpretive data was last revised 2022. Calcium 9.5 8.5 - 10.3 mg/dL [facility] Bilirubin, total 0.3 0.1 - 1.2 mg/dL [facility] Protein, pl 7.2 6.5 - 8.5 g/dL [facility] Albumin 4.6 3.5 - 5.0 g/dL [facility] Alk phos 79 40 - 130 Units/L [facility] ALT 16 7 - 45 Units/L [facility] AST 18 10 - 45 Units/L [facility] Blood 10/06/2024 6:03 PM CDT 10/06/2024 6:04 PM CDT us Quoc Ríos MD LAB BLOOD ORDERABLES nal Result [facility] [address] [facility] [place] [address] * Pro B-type natriuretic peptide (08/27/2024 8:58 AM CDT) NT PROBNP 48 <125 pg/mL [facility] 08/27/2024 8:58 AM CDT 08/27/2024 9:00 AM CDT Narrative [facility] - 09/03/2024 1:38 PM CDT FASTING:YES FASTING: YES Yoan Fernandez MD LAB BLOOD ORDERABLES Final Re sult Performing Organization Address [facility] Co de Phone Number [facility] [address] [place] [address] * IgE, quantitative, serum - immunoglobulin E (08/27/2024 8:58 AM CDT) Immunoglobulin E 14 <NZ=494 kU/L [facility] 08/27/2024 8:58 AM CDT 08/27/2024 9:00 AM CDT Narrative [facility] - 09/03/2024 1:38 PM CDT FASTING:YES FASTING: YES Yoan Fernandez MD LAB BLOOD ORDERABLES Final Re sult Performing Organization Address [facility] de Phone Number [facility] [address] [place] [address] * Msgcu-0-ysihyricmcx phenotype (08/27/2024 8:58 AM CDT) Gjvua-2-Rfqmqurbl in (AAT) Phenotype SEE NOTE [facility] Comment: THIS PATIENT'S ZQEIO-9-JDKSWFHXYEW PHENOTYPE IS PI*MM. 90% of normal individuals have the MM phenotype, with normal quantitative AAT levels. Many phenotypic patterns have been described, including deficiency states with F, S, Z, or other alleles. As a general estimation, compared to M allele of 100% of normal K-1-Svgdajxopni protein, the S allele produces approximately 60% and the Z allele 20%. For example, an MS phenotype would have about 80% of normal W-2-Pnaybahwfne protein level, a 50% contribution from the M allele and 30% from the S allele. A ZZ phenotype would have about 20% of normal levels, a 10% contribution from each Z gene. The F allele has normal H-3-Hwhianbznen levels, but the kinetics of elastase inhibition is not as efficient as an M allele product; F alleles should be considered functionally mildly deficient. Other variants are identifiable by phenotypic analysis. These include CM, DP, EM, GM, IS, LM, M1M2, M3M3, MP, MT, XX, MY, and M1N. I, P, T and null alleles are considered deleterious. C, D, E, G, L, M1, M2, M3, X and Y alleles are generally considered normal variants. The MZ-Morgan phenotype is a normal variant; care should be taken to avoid confusion with the deficient MZ phenotype. 08/27/2024 8:58 AM CDT 08/27/2024 9:00 AM CDT Narrative [facility] - 09/03/2024 1:38 PM CDT FASTING:YES FASTING: YES Yoan Fernandez MD LAB BLOOD ORDERABLES Final Re sult Performing Organization Address [facility]/ZIP Co de Phone Number [facility] [address] [place] [address] * Bwsul-8-jkdbncbqlob (08/27/2024 8:58 AM CDT) [facility] alpha-1 antitrypsin 158 83 - 199 mg/dL [facility] 08/27/2024 8:58 AM CDT 08/27/2024 9:00 AM CDT Narrative [facility] - 09/03/2024 1:38 PM CDT FASTING:YES FASTING: YES Yoan Fernandez MD LAB BLOOD ORDERABLES Final Re sult [facility] [address] [place] [address] * CT Lung Cancer Screening (08/06/2024 4:40 PM CDT) Anatomical Region Laterality Modality Chest N/A Computed Tomogra phy 08/17/2024 2:20 PM CDT Narrative 08/17/2024 3:35 PM CDT EXAM DESCRIPTION: CT LUNG CANCER SCREENING REASON FOR STUDY: Screening CT of the chest in a current smoker with a 43 pack year smoking history. Additional history: None. TECHNIQUE: Low dose CT scan of the chest was performed without intravenous contrast using helical scanning technique. The exam extends from the lung apices through the lung bases. Automatic exposure control was used as a dose optimization technique. NOTE: This study was performed for the specific purposes of lung cancer screening and is not an alternative to diagnostic chest CT. RADIATION DOSE: CT dose index volume (CTDIvol) = 2.97 mGy COMPARISON: None available. FINDINGS: SMOKING RELATED LUNG DISEASE: There is paraseptal and centrilobular pulmonary emphysema. Bilateral bronchial wall thickening/bronchiectasis. LUNG NODULES: Multiple scattered pulmonary nodules, for example right upper lobe 0.2 cm (series 2, image 42), right upper lobe medial margin 0.5 cm (series 2, image 48), right upper lobe lateral margin 0.2 cm (series 2, image 48), right upper lobe lateral margin 0.2 cm (series 2, image 53), right upper lobe lateral margin 0.2-0.3 cm (series 2, image 70 6-77), right upper lobe lateral margin 0.3 cm (series 2, image 112), right middle lobe 0.2 cm (series 2, image 196), left upper lobe 0.5 cm (series 2, image 41), left upper lobe posterior margin 0.2 cm (series 2, image 49), 0.2 cm nodule along the left major fissure (series 2, image 126), left lower lobe posterior margin 0.2 cm (series 2, image 126). CORONARY ARTERY CALCIFICATION: Present. OTHER: Right paratracheal diverticulum (series 2, image 44). Nonspecific mediastinal lymph nodes, for example right pretracheal 0.9 cm (series 2, image 95). The evaluation for hilar adenopathy is limited without intravenous contrast. The heart is nonenlarged. Calcified plaque in the thoracic aorta and origins of the great vessels. There is nonspecific mild patulous appearance of the thoracic esophagus, request clinical correlation. The need for direct visualization as clinically indicated. The upper abdomen is suboptimally evaluated on this low-dose unenhanced chest CT technique. Calcified plaque in the imaged abdominal aorta and major branch vessels, maximum transverse dimension of 3 cm. The osseous structures are diffusely demineralized. The thoracic vertebral body heights are maintained. A few scattered sclerotic foci, for example in the right humeral head and T5 vertebral body are nonspecific and presumed to be a bone island in a patient without history of malignancy. IMPRESSION: 1. Pulmonary emphysema. 2. Multiple bilateral pulmonary nodules as above. 3. Partially imaged abdominal aorta with ectasia/borderline aneurysmal dilatation. If this is a new finding for the patient then recommend dedicated abdominal aortic ultrasound. 4. Previous imaging studies are not available for comparison. Lung-RADS category 2: Benign appearance or behavior. Recommendation: Low dose Screening CT of chest in 12 months. THIS IS AN ELECTRONICALLY VERIFIED FINAL REPORT 08/17/2024 3:35 PM - Electronically signed by Dominic Gregory D.O. AP: AP Report ID: [id number] Reading Location: [id number] Procedure Note Dominic Gregory, DO - 08/17/2024 EXAM DESCRIPTION: CT LUNG CANCER SCREENING REASON FOR STUDY: Screening CT of the chest in a current smoker with a43 pack year smoking history. Additional history: None. TECHNIQUE: Low dose CT scan of the chest was performed without intravenous contrast using helical scanning technique. The exam extends from the lung apices through the lung bases. Automatic exposure control was used as adose optimization technique. NOTE: This study was performed for the specific purposes of lung cancer screening and is not an alternative to diagnostic chest CT. RADIATION DOSE: CT dose index volume (CTDIvol) = 2.97 mGy COMPARISON: None available. FINDINGS: SMOKING RELATED LUNG DISEASE: There is paraseptal and centrilobular pulmonary emphysema. Bilateral bronchial wall thickening/bronchiectasis. LUNG NODULES: Multiple scattered pulmonary nodules, for example rightupper lobe 0.2 cm (series 2, image 42), right upper lobe medial margin 0.5 cm (series 2, image 48), right upper lobe lateral margin 0.2 cm (series 2,image 48), right upper lobe lateral margin 0.2 cm (series 2, image 53), rightupper lobe lateral margin 0.2-0.3 cm (series 2, image 70 6-77), right upper lobe lateral margin 0.3 cm (series 2, image 112), right middle lobe 0.2 cm(series 2, image 196), left upper lobe 0.5 cm (series 2, image 41), left upperlobe posterior margin 0.2 cm (series 2, image 49), 0.2 cm nodule along the left major fissure (series 2, image 126), left lower lobe posterior margin 0.2cm (series 2, image 126). CORONARY ARTERY CALCIFICATION: Present. OTHER: Right paratracheal diverticulum (series 2, image 44).Nonspecific mediastinal lymph nodes, for example right pretracheal 0.9 cm (series 2,image 95). The evaluation for hilar adenopathy is limited without intravenous contrast. The heart is nonenlarged. Calcified plaque in the thoracicaorta and origins of the great vessels. There is nonspecific mild patulous appearance of the thoracic esophagus, request clinical correlation. Theneed for direct visualization as clinically indicated. The upper abdomen is suboptimally evaluated on this low-dose unenhanced chest CT technique. Calcified plaque in the imaged abdominal aorta and major branch vessels, maximum transverse dimension of 3 cm. The osseous structures arediffusely demineralized. The thoracic vertebral body heights are maintained. A few scattered sclerotic foci, for example in the right humeral head and T5 vertebral body are nonspecific and presumed to be a bone island in apatient without history of malignancy. IMPRESSION: 1. Pulmonary emphysema. 2. Multiple bilateral pulmonary nodules as above. 3. Partially imaged abdominal aorta with ectasia/borderline aneurysmal dilatation. If this is a new finding for the patient then recommenddedicated abdominal aortic ultrasound. 4. Previous imaging studies are not available for comparison. Lung-RADS category 2: Benign appearance or behavior. Recommendation: Low dose Screening CT of chest in 12 months. THIS IS AN ELECTRONICALLY VERIFIED FINAL REPORT 08/17/2024 3:35 PM - Electronically signed by Dominic Gregory D.O. AP: AP Report ID: [id number] Reading Location: [place] [address] Yoan Fernandez MD IMG CT PROCEDURES Final Resul t from Last 3 Months or Most Recently Relevant to Health Maintenance Insurance Care Teams Rotary Drill Operator Helper Relationship Specialty Start Date End Date Brett Wagner MD [address] [place] [id number] PCP - General Emergency Medicine 07/08/24
[2024-11-19 15:58] LABS: Hematocrit 40.4 % (37.0-47.0); Hemoglobin 13.8 g/dL (12.0-15.0); Immature Granulocyte Percent A 0.5 % (0-0.5); Lymphocytes Absolute Auto 1.85 K/mm3 (0.9-3.2); Mean Corpuscular HGB Conc 34.2 g/dl (32-36); Mean Corpuscular Hemoglobin 31.4 pg (26-34); Mean Corpuscular Volume 91.8 fl (80-100); Nucleated Red Blood Cells Absolute Auto 0.000 K/mm3 (0.0-0.012); Nucleated Red Blood Cells Perc 0.0 % (0.0-0.2); Platelet Count Result 268 k/mm3 (150-375); Red Blood Count 4.40 M/mm3 (4.2-5.4); White Blood Count 6.6 K/mm3 (4.5-10.0)
[2024-11-19 16:33] LABS: Alanine Aminotransferase 21 U/L (6-35); Albumin Level 4.5 g/dL (3.5-5.1); Alkaline Phosphatase 72 U/L (38-126); Anion Gap 8 mmol/L (4-12); Aspartate Amino Transferase 30 U/L (14-36); Bilirubin,Total 0.4 mg/dL (0.2-1.3); Blood Urea Nitrogen 14 mg/dL (7-17); CRP < 0.5 mg/dL (<1.0); Calcium 9.6 mg/dL (8.4-10.2); Carbon Dioxide 27 mmol/L (22-30); Chloride 99 mmol/L (98-107); Estimated Glomerular Filt Rate > 60; Glucose 89 mg/dL (65-110); Potassium 4.0 mmol/L (3.4-5.0); Sodium 134 mmol/L (137-145); Total Protein 8.0 g/dL (6.3-8.2)
[2024-11-19 16:40] LABS: Immunoglobulin A 134 mg/dL (70-400); Immunoglobulin G 1231 mg/dL (700-1600); Immunoglobulin M 129 mg/dL (40-230)
[2024-11-19 18:09] LABS: Hepatitis B Surface Antigen Negative (Negative)
[2024-11-19 18:17] LABS: HAV RESULT Negative (Negative); Hepatitis B Core IgM Result Negative (Negative)
[2024-11-20 15:09] LABS: ANA by IFA Rfx Titer/Pattern Positive (.)
== END 2024-11-19 15:33 | disposition home or self-care (01) ==
LOC: ANHLAB 15:33
PROVIDERS: PCP Emergency Medicine; Visit Provider Internal Medicine Hematology & Oncology
DX: D72.810 Lymphocytopenia (principal)
CPT/HCPCS: 36415; 80053; 80074; 82784; 85025; 85652; 86038; 86140; 88184

== ENCOUNTER 2024-12-11 14:24 | Outpatient (CLI) | payer OTHER, SELFPAY ==
--- NOTE | ~2024-12-11 | DEXA_ITS ---
Bone Density Report Name: EMILY LOVE Age: 59 Sex: Female Ethnicity: White Date of : 1965 Indication: postmenopausal; screening for osteoporosis; height loss; asthma or emphysema; Referring Provider: GRETCHEN LING Study: Bone densitometry was performed. Exam Date: December 11, 2024 Accession number: [id number] Bone Density: Region BMD T-score Z-score Classification AP Spine(L1-L4) 0.601 -4.1 -2.7 Osteoporosis Femoral Neck (Left) 0.446 -3.6 -2.4 Osteoporosis Total Hip (Left) 0.501 -3.6 -2.7 Osteoporosis Femoral Neck (Right) 0.398 -4.1 -2.8 Osteoporosis Total Hip (Right) 0.466 -3.9 -3.0 Osteoporosis Total Hip Mean 0.483 -3.8 -2.9 Osteoporosis World Health Organization criteria for BMD impression classify patients as: Normal (T-score at or above -1.0), Osteopenia (T-score between -1.0 and -2.5), or Osteoporosis (T-score at or below -2.5). 10-year Fracture Risk: FRAX not reported because: Some T-score for Spine Total or Hip Total or Femoral Neck at or below -2.5 Clinical Information Provided by Patient: Smokes Has used the following medications: Vitamin D Has the following medical conditions: Asthma or Emphysema, COPD Patient maximum height was 64 Menopause Age: 48 Drinks caffeinated beverages Onset of menses at age 12 Number of children 6 Missed period for more than 6 months in a row Impression: The patient has osteoporosis, based on the Total Spine T-score. The patient has risk factors, including: smoking. Discussion: HIGH RISK OF FRACTURE. BONE DENSITY IS UNDESIRABLY LOW AT ONE OR MORE SKELETAL SITES, CONSISTENT WITH OSTEOPOROSIS. ALSO, BONE DENSITY IS LOWER THAN EXPECTED FOR AGE AND SEX AT ONE OR MORE SKELETAL SITES; RECOMMEND A DILIGENT SEARCH FOR SECONDARY CAUSES OF BONE LOSS. This patient's lowest T-score meets the World Health Organization's (WHO) criteria for osteoporosis at one or more sites (T-score -2.5 or below). In untreated patients, the risk of osteoporotic fracture increases approximately two-fold for each 1.0 SD decrease in T-score. Low bone density is not the only risk factor for fracture; also consider factors such as patient's age, frailty or poor health, risk of falling, risk of injury, previous osteoporotic fracture, family history of osteoporosis, cigarette smoking, low body weight, etc. Not everyone with low bone mineral density has osteoporosis; osteomalacia and other metabolic bone disorders should also be considered. Patients who have osteoporosis should be evaluated for specific diseases and conditions (secondary causes) that may cause or contribute to bone loss. The [employer] Association [employer] Clinical Endocrinologists (AACE) and National Osteoporosis Foundation (NOF) recommend pharmacologic intervention for all postmenopausal women whose T-score is in this range. Also, this patient's bone mineral density is below the range considered normal for healthy age-, sex-, and race-matched controls at least one site (Z-score -2.0 or below). This warrants careful evaluation for diseases and conditions that may contribute to accelerated bone loss. The patient should follow a healthful lifestyle (good nutrition with adequate calcium and vitamin D, and appropriate weight-bearing exercise). Follow-Up: Consider a repeat BMD and Vertebral Fracture Assessment (VFA) exam in 2 years or sooner if medically necessary, to reassess this patient's status. Reported by: CARIDAD on 12/11/2024 2:50:00 PM. Reviewed, dictated and finalized at location A.
== END 2024-12-11 14:25 | disposition home or self-care (01) ==
LOC: MICIMG 14:26
PROVIDERS: PCP Obstetrics & Gynecology; Visit Provider Obstetrics & Gynecology
DX: Z13.820 Encounter for screening for osteoporosis (principal); M81.0 Age-related osteoporosis without current pathological fracture
CPT/HCPCS: 77080

== ENCOUNTER 2024-12-11 15:06 | Outpatient (CLI) | payer OTHER, SELFPAY ==
--- OUTSIDE RECORDS SUMMARY | 2024-12-10 15:30 | XMS_ITS | Encounter Summary ---
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, bilateral legs Procedures US RUCHI Alfa Sage MD [address] [place] [address] [address] [address] Phone: tel: fax: [address] [address] Referral ID Status Reason Start Date Expiration Date V isits Requested Visits Authorized [id number] Pending Review 12/10/2024 01/09/2026 1 1 * MRI/CAT/PET Scan (Routine) - Pending Review Specialty Diagnoses / Procedures Referred By Contac t Referred To Contact Radiology Diagnoses Coronary artery disease involving three affiliated coronary artery of three affiliated heart with other form of angina pectoris Abnormal cardiovascular stress test Anginal equivalent Procedures CTA HEART W CALCIUM SCORING Alfa Sage MD [facility] [address] KENNEY [address] [address] Phone: tel: fax: [address] [phone] Referral ID Status Reason Start Date Expiration Date V isits Requested Visits Authorized [id number] Pending Review 12/10/2024 01/09/2026 1 1 Reason for Visit * Reason Comments Abnormal Cardiac Testing Encounter Details Date Type Department Care Team (Late st Contact Info) Description 12/10/2024 3:30 PM CDT Office Visit [facility] Cardiology [address] [facility] [address] [place] [address] Alfa Sage MD [address] [place] [address] [address] [place] [address] Coronary artery disease involving three affiliated coronary artery of three affiliated heart with other form of angina pectoris (Primary Dx); Abnormal cardiovascular stress test; Anginal equivalent; Abnormal EKG; 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, bilateral legs; Infrarenal abdominal aortic aneurysm (AAA) without rupture; Dyslipidemia; Tobacco abuse; Other emphysema (HCC) Social History Tobacco Use Types Packs/Day Years Used Date Smoking Tobacco: Every Day Cigarettes 2 35.7 Started: 1989 Comments:Down to 10 cigarett es [...] on file 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 Gender Identity Not on file Sexual Orientation Not on file documented as of this encounter Last Filed Vital Signs Vital Sign Reading Time Taken Comments Blood Pressure 122/76 12/10/2024 3:26 PM CDT Pulse 76 12/10/2024 3:26 PM CDT Temperature - - Respiratory Rate - - Oxygen Saturation - - Inhaled Oxygen Concentration - - Weight 49.9 kg (110 lb 1.6 oz) 12/10/2024 3:26 P M CDT Height 157.5 cm (5' 2) 12/10/2024 3:26 PM CDT Body Mass Index 20.14 12/10/2024 3:26 PM CDT documented in this encounter Progress Notes * Alfa Sage MD - 12/10/2024 3:30 PM CDT Images from the original note were not included. Clinic Note - [facility] - Cardiology Patient Name: Deidra Bowers Date of : 1965 PCP: Referring, Reagan, Chief Complaint: Chief Complaint Patient presents with Abnormal Cardiac Testing Interval History/Hospital/ED Visits: HPI: Deidra Bowers is a 59 y.o. female with past history as outlined below. The patient returns for follow-up to review test results. Findings were discussed with the patient and her diywzlze-az-liu. Stress MPI 11/24/2024 CONCLUSION: Limited exercise tolerance, due to dyspnea The ECG portion of Lexiscan Myoview is negative for induced ischemia. No clinically significant Lexiscan-induced arrhythmias were noted. The nuclear imaging portion of this test will be reported separately Impressions: Increased TID ratio suggestive of either artifact or left main or multivessel coronary artery disease. Suggest clinical correlation. No evidence of reversible ischemia Normal left ventricle wall motion Calculated ejection fraction is 64%. TTE 11/24/2024 CONCLUSIONS: 1. Normal left ventricular cavity size. Normal Left ventricular wall thickness. Normal left ventricular systolic function. The Ejection Fraction (Cast's) is measured at 58 %. The Ejection Fraction is visually estimated to be 55-60 %. Diastolic Function Left ventricular diastolic parameters are consistent with Grade I diastolic dysfunction (normal LA pressure). 2. No significant valvular abnormalities. She continues to notice decreased exercise tolerance and shortness of breath with light activity. She has occasional chest pain. She complains of cramping in her calves at rest or with activity. She continues to smoke. No other complaints. Patient Active Problem List Diagnosis Dyspnea and respiratory abnormalities Hyponatremia Vitamin D deficiency AAA (abdominal aortic aneurysm) Other emphysema (HCC) Past Medical History Past Medical History: Diagnosis Date Abdominal aortic aneurysm (AAA) COPD (chronic obstructive pulmonary disease) Past Surgical History History reviewed. No pertinent surgical history. Medications Current Outpatient Medications: albuterol HFA (PROVENTIL HFA,VENTOLIN HFA,PROAIR HFA) 90 mcg/actuation inhaler, Inhale 2 puffs every 4 (four) hours as needed for wheezing or shortness of breath (coughing), Disp: 18 g, Rfl: 4 aspirin 81 mg enteric coated tablet, Take 1 tablet (81 mg total) by mouth daily, Disp: , Rfl: atorvastatin (LIPITOR) 10 mg tablet, Take 1 tablet (10 mg total) by mouth daily, Disp: , Rfl: ergocalciferol (VITAMIN D) 50,000 unit capsule, TAKE 1 CAPSULE BY MOUTH WEEKLY, Disp: , Rfl: hpgtwxpxxbw-vnwjivdtf-qbmjlgsh (Trelegy Ellipta) 100-62.5-25 mcg inhaler, Inhale 1 puff daily, Disp: 60 each, Rfl: 3 inhaler,assist devices,access device, 1 Device as needed (with inhalers), Disp: 1 each, Rfl: 0 nicotine (NICODERM CQ) 14 mg, Place 1 patch on the skin daily for 24 hours, Disp: 30 patch, Rfl: 0 ROS: ROS negative other than what is noted in HPI. PHYSICAL EXAM: BP 122/76 (BP Location: Left arm, Patient Position: Sitting) Pulse 76 Ht 157.5 cm (5' 2) Wt 49.9 kg (110 lb 1.6 oz) LMP (LMP Unknown) BMI 20.14 kg/m?? Wt Readings from Last 3 Encounters: 12/10/24 49.9 kg (110 lb 1.6 oz) 12/02/24 50 kg (110 lb 3.2 oz) 10/14/24 49.4 kg (108 lb 12.8 oz) Physical Exam Constitutional: No distress. Eyes: Conjunctivae are normal. Neck: No JVD present. Cardiovascular: Normal rate, regular rhythm, normal heart sounds and intact distal pulses. Pulmonary/Chest: Breath sounds normal. Abdominal: Soft. Bowel sounds are normal. Musculoskeletal: General: No edema. Cervical back: Normal range of motion. Neurological: She is alert. Skin: Skin is warm. Diagnostic Data Labs: Lab Results Component Value Date SODIUM 136 10/06/2024 POTASSIUM 3.4 10/06/2024 CO2 25 10/06/2024 CHLORIDE 100 10/06/2024 BUNSER 16 10/06/2024 CREATININE 0.70 10/06/2024 CREATININE 0.60 10/06/2024 GLUCOSE 133 10/06/2024 CALCIUM 9.5 10/06/2024 Lab Results Component Value Date ALT 16 10/06/2024 AST 18 10/06/2024 ALKPHOS 79 10/06/2024 BILITOT 0.3 10/06/2024 PROT 7.2 10/06/2024 ALBUMIN 4.6 10/06/2024 Lab Results Component Value Date WBC 5.99 10/06/2024 HGB 13.3 10/06/2024 HCT 39.3 10/06/2024 MCV 89.7 10/06/2024 LABPLAT 247 10/06/2024 No results found for: INR, APTT Lab Results Component Value Date NTPROBNP 48 08/27/2024 No results found for: TSH No results found for: CHOL, POCCHOL, TRIG, POCTRIG, HDL, POCHDL, LDLCALC, CLDL, HIRISKLDL, LDL, LDLC, LDLDIRECT, LDLMED, LDLP, POCLDL, SCRLDL, SMALLLDLP, TOTLDLC Impression and Plan Assessment & Plan Coronary artery disease involving three affiliated coronary artery of three affiliated heart with other form of angina pectoris Based on coronary artery calcification seen on lung cancer screening CT 2022. Abnormal stress myocardial perfusion imaging with significantly reduced exercise capacity and transient ischemic dilatation. Continued evaluate for obstructive coronary artery disease and underlying ischemia. Check coronary CTA. On aspirin and atorvastatin. Continue therapy. Orders: CTA HEART W CALCIUM SCORING; Future Abnormal cardiovascular stress test Transient ischemic dilatation with significantly reduced exercise capacity despite normal perfusioncould still suggest left main/multivessel CAD. She has evidence of coronary atherosclerosis based on prior CT with coronary calcification. Recommend further evaluation with coronary CTA. 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 Orders: US RUCHI; Future Infrarenal abdominal aortic aneurysm (AAA) without rupture Small. Being followed by vascular surgery. Dyslipidemia On atorvastatin. Continue current treatment. Tobacco abuse Encouraged cessation. Other emphysema (HCC) Return in about 6 months (around 06/09/2025). Alfa Sage MD documented in this encounter Miscellaneous Notes * Assessment & Plan Note - Alfa Sage MD - 12/10/2024 3:30 PM CDTAssociated Problem(s): AAA (abdominal aortic aneurysm) Small. Being followed by vascular surgery. * Assessment & Plan Note - Alfa Sage MD - 12/10/2024 3:30 PM CDTAssociated Problem(s): Dyslipidemia On atorvastatin. Continue current treatment. * Assessment & Plan Note - Alfa Sage MD - 12/10/2024 3:30 PM CDTAssociated Problem(s): Tobacco abuse Encouraged cessation. 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, bilateral legs Expected: 12/17/2024, Expires: 12/10/2025 documented as of this encounter Visit Diagnoses Diagnosis Coronary artery disease involving three affiliated coronary artery of three affiliated heart with other form of angina pectoris- Primary Abnormal cardiovascular stress test Other nonspecific abnormal cardiovascular system function study Anginal equivalent Abnormal EKG Nonspecific abnormal electrocardiogram (ECG) (EKG) 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
--- NOTE | ~2024-12-11 | MM_ITS ---
EXAMINATION: MM screening juan BI w [facility] HISTORY: Screening TECHNIQUE: Craniocaudal and mediolateral oblique 3-D tomosynthesis images were obtained and synthetic 2-D images were generated. CAD analysis was submitted and interpreted. COMPARISON: No prior mammogram is available for comparison at this institution. BREAST PARENCHYMAL COMPOSITION: There are scattered areas of fibroglandular density. FINDINGS: There is no evidence of suspicious mass, calcification, or architectural distortion in either breast to suggest malignancy. There has been no significant interval change. IMPRESSION: 1. No mammographic evidence of malignancy. Recommend routine screening mammography in one year. BI-RADS Category 1: Negative Reviewed, dictated and finalized at location Q. IMPRESSION: 1. No mammographic evidence of malignancy. Recommend routine screening mammogra phy in one year. BI-RADS Category 1: Negative
--- OUTSIDE RECORDS SUMMARY | 2024-12-11 15:14 | XMS_ITS | Clinical Summary ---
Author Organization [facility] Address [address] [place] [address] Phone Care Team Providers Care Purchasing And Fiscal Clerk Name Role Phone Unavailable Primary Care Provider [...] Encounters Date Type Department Care Team Description 12/02/2024 4:30 PM CDT Telephone Check Up [facility] - [place] [address] [place] [address] Markos Gordon MD 12/02/2024 External Device Data [facility] ABSTRACTION Provider, Abstract 11/25/2024 External Device Data [facility] ABSTRACTION Provider, Abstract 11/24/2024 External Device Data [facility] ABSTRACTION Provider, Abstract 11/23/2024 Orders Only [facility] - [place] [address] [place] [address] Markos Gordon MD 11/19/2024 3:00 PM CDT Office Visit [facility] [address] [place] [phone] Markos Grodon MD Lymphocytopenia (Primary Dx) 11/19/2024 Abstract [facility] [address] [place] [id number] Markos Gordon MD from Last 3 Months Family History [...] on file 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 Gender Identity Not on file Sexual Orientation [...] 11/19/2024 2:52 PM CDT Plan of Treatment Health Maintenance [...] of 2) 2015 INFLUENZA VACCINE (#1) 2024 Lung Cancer Screening 08/06/2025 08/06/2024 Procedures Procedure Name Priority Date/Time Associated Diagnosis Comments FLOW CYTOMETRY REPORT Routine 11/20/2024 4:02 PM CDT RYAN PANEL Routine 11/19/2024 1:54 PM CDT ACUTE HEPATITIS PANEL Routine 11/19/2024 12:38 PM CDT CBC WITH AUTODIFFERENTIAL Routine 2024 12:36 PM CDT COMPREHENSIVE METABOLIC PANEL Routine 11/19/2024 12:33 PM CDT from Last 3 Months Results * FLOW CYTOMETRY REPORT (11/20/2024 4:02 PM CDT) Markos Gordon MD PATHOLOGY/CYTOLOGY ORDERABLES F inal Result * RYAN PANEL (11/19/2024 1:54 PM CDT) Blood Markos Gordon MD CHEMISTRY ORDERABLES Final Resu lt * ACUTE HEPATITIS PANEL (11/19/2024 12:38 PM CDT) Blood Markos Gordon MD CHEMISTRY ORDERABLES Final Resu lt * CBC WITH AUTODIFFERENTIAL (11/19/2024 12:36 PM CDT) Blood Markos Gordon MD HEMATOLOGY ORDERABLES Final Res ult * COMPREHENSIVE METABOLIC PANEL (11/19/2024 12:33 PM CDT) Blood Markos Gordon MD CHEMISTRY ORDERABLES Final Resu lt from Last 3 Months Insurance
--- OUTSIDE RECORDS SUMMARY | 2024-12-11 15:14 | XMS_ITS | Clinical Summary ---
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 Continue current treatment. Tobacco abuse 12/10/2024 Assessment & Plan (12/10/2024 4:36 PM CDT): Encouraged cessation. AAA (abdominal aortic aneurysm) 10/14/2024 Assessment & Plan (12/10/2024 4:36 PM CDT): Small. Being followed by vascular surgery. Assessment & Plan (10/14/2024 3:24 PM CDT): Small. Followed by vascular surgery. Other emphysema 10/14/2024 Assessment & Plan (12/10/2024 4:36 PM CDT): Dyspnea and respiratory abnormalities 08/06/2024 Assessment & Plan (10/14/2024 3:24 PM CDT): Multifactorial. Significant component related to her COPD. 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, bilateral legs; Infrarenal abdominal aortic aneurysm (AAA) without rupture; Dyslipidemia; Tobacco abuse; Other emphysema (HCC) 12/02/2024 1:30 PM CDT Office Visit [facility] Pulmonology [address] [place] [phone] Yoan Fernandez MD Chronic obstructive pulmonary disease, unspecified COPD type (HCC) (Primary Dx); Severe persistent asthma without complication (HCC); Chronic rhinitis; Cigarette nicotine dependence without complication 11/24/2024 7:06 AM CDT - 11/24/2024 11:59 PM CDT Hospital Encounter [facility] Cardiac Testing [address] [place] [address] Dyspnea and respiratory abnormalities Discharge Disposition: Discharge to home or self care 11/24/2024 7:06 AM CDT - 11/24/2024 11:59 PM CDT Hospital Encounter [facility] Nuclear Medicine [address] [place] [address] Discharge Disposition: Discharge to home or self care 11/24/2024 7:05 AM CDT - 11/24/2024 11:59 PM CDT Hospital Encounter [facility] Nuclear Medicine [address] [place] [address] Discharge Disposition: Discharge to home or self care 11/24/2024 7:05 AM CDT - 11/24/2024 11:59 PM CDT Hospital Encounter [facility] Nuclear Medicine [address] [place] [address] Anginal equivalent Discharge Disposition: Discharge to home or self care 11/05/2024 3:17 PM CDT - 11/05/2024 11:59 PM CDT Hospital Encounter [facility] Respiratory Therapy [address] [place] [address] Chronic obstructive pulmonary disease, unspecified COPD type (HCC); Dyspnea and respiratory abnormalities Discharge Disposition: Discharge to home or self care 10/14/2024 2:30 PM CDT Office Visit [facility] Cardiology [address] [place] [address] [address] [place] [phone] Alexx Ferrer MD Dyspnea and respiratory abnormalities (Primary Dx); Infrarenal abdominal aortic aneurysm (AAA) without rupture; Anginal equivalent; Pulmonary emphysema, unspecified emphysema type (HCC); Tobacco abuse; Family history of ischemic heart disease; Hyperlipidemia, unspecified hyperlipidemia type 10/12/2024 10:30 AM CDT Office Visit [facility] Medicine Surgery [address] [facility] Medical Office [address] [address] Fabio Head MD Abdominal aortic aneurysm (AAA), unspecified part, unspecified whether ruptured 10/06/2024 7:10 PM CDT - 10/06/2024 11:23 PM CDT Emergency [address] [address] Keesha Capps MD Infrarenal abdominal aortic aneurysm (AAA) without rupture (Primary Dx); Arteriosclerosis Discharge Disposition: Discharge to home or self care from Last 3 Months Medical History Medical [...] on file 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 Gender Identity Not on file Sexual Orientation Not on file Obstetrics History Last Filed Vital Signs Vital Sign Reading Time Taken Comments Blood Pressure 122/76 12/10/2024 3:26 PM CDT Pulse 76 12/10/2024 3:26 PM CDT Temperature 36.6 C (97.9 F) 12/02/2024 1:36 PM CDT Respiratory Rate 18 10/12/2024 10:33 AM CDT Oxygen Saturation 96% 12/02/2024 1:36 PM CDT Inhaled Oxygen Concentration - - Weight 49.9 kg (110 lb 1.6 oz) 12/10/2024 3:26 P M CDT Height 157.5 cm (5' 2) 12/10/2024 3:26 PM CDT Body Mass Index 20.14 12/10/2024 3:26 PM CDT Plan of Treatment Health Maintenance [...] 2) 2015 Covid-19 Vaccine (3 - season) 12/07/202411/2020, 12/23/2020 Influenza Vaccine (#1) 2024 Lung Cancer Screening 08/07/2025 08/06/2024 Procedures Procedure Name Priority Date/Time Associated Diagnosis Comments STRESS TEST FOR DUAL READ Schedule Routine, Read Routine (OP Routine) 11/24/2024 12:15 PM CDT Anginal equivalent NM MPI SPECT (REST AND/OR STRESS) MULTIPLE STUDIES Schedule Routine, Read Routine (OP Routine) 11/24/2024 12:15 PM CDT Anginal equivalent TRANSTHORACIC ECHO (TTE) COMPLETE W DOPPLER/CF WO CONTRAST Routine 11/24/2024 10:45 AM CDT Dyspnea and respiratory abnormalities ECG 12-LEAD Routine 10/14/2024 2:50 PM CDT [...] AUTO DIFFERENTIAL STAT 10/06/2024 6:[address] LUNG CANCER SCREENING Schedule Routine, Read Routine (OP Routine) 08/06/2024 4:40 PM CDT Cigarette nicotine dependence without complication from Last 3 Months or Most Recently Relevant to Health Maintenance Results * NM MPI SPECT (Rest and/or Stress) Multiple Studies (11/24/2024 12:15 PM CDT) Anatomical Region Laterality Modality Body N/A Nuclear Medicine Narrative 11/26/2024 4:41 PM CDT Patient Id: Emily Love is a 59 y.o. female. MR#: [id number] Study date: November 24 2024 Report of the nuclear portion of the stress test Please see separate dictation by Dr. Reza for indications and stress portion MPI report: Patient received 11 mCi of Myoview at rest. Patient received 33 mCi of Myoview at stress Quality of the study: Good. No motion correction performed. No prone images were obtained. Findings: Left ventricular cavity normal at rest and stress images. SPECT rest and stress images reveal normal perfusion. Gated images demonstrates normal wall motion. Calculated ejection fraction is 64%. TID ratio is 1.32 which is increased Impressions: Increased TID ratio suggestive of either artifact or left main or multivessel coronary artery disease. Suggest clinical correlation. No evidence of reversible ischemia Normal left ventricle wall motion Calculated ejection fraction is 64%. Copy to Brett Wagner MD 11/26/2024 Alexx Ferrer MD IMG NM PROCEDURES Final Result * Stress Test for Myocardial Perfusion (11/24/2024 12:15 PM CDT) Anatomical Region Laterality Modality Nuclear Medicine Narrative 11/25/2024 6:37 PM CDT LEXISCAN NUCLEAR STRESS TEST CLINICAL INDICATION: Abdominal aortic aneurysm, dyspnea STUDY DESCRIPTION: Patient was exercised to 3 minutes and 15 seconds of a standard [place] protocol limited by dyspnea. No chest discomfort was reported. Resting heart rate was 68 beats per minute. Heart rate at peak exertion was 126 beats per minute, representing 78% of maximum predicted heart rate. Because the patient was unable to achieve a heart rate consistent with the accepted definition of a diagnostic level of exercise stress, patient was switched to a pharmacological stress test protocol. After reviewing benefits, risks and alternatives, and obtaining informed consent, patient was infused with regadenoson (Lexiscan) per protocol. This was followed by technetium Tc99m tetrofosmin (Myoview) and a fluid bolus. Resting heart rate was 68 bpm. The highest heart rate was 104 bpm. Heart rate at the end of the test was 88 bpm. Initial blood pressure 110/76 mmHg. The maximum-excursion blood pressure was 149/73 mmHg. Blood pressure at the end of the test was 126/78 mmHg. Patient experienced expected Lexiscan side effects. Test was terminated after protocol was complete. Test supervised and interpreted by Kar Reza M.D. EKG FINDINGS: Resting ECG shows sinus rhythm 68 beats per minute, nonspecific ST wave abnormality.. There were no ECG changes diagnostic of ischemia post-Lexiscan infusion. There were no clinically significant Lexiscan-induced arrhythmias CONCLUSION: Limited exercise tolerance, due to dyspnea The ECG portion of Lexiscan Myoview is negative for induced ischemia. No clinically significant Lexiscan-induced arrhythmias were noted. The nuclear imaging portion of this test will be reported separately us Alexx Ferrer MD CV STRESS PROCEDURES Final Resul t * TRANSTHORACIC ECHO (TTE) COMPLETE W DOPPLER/CF WO CONTRAST (11/24/2024 10:45 AM CDT) Estimated EF 55-60 % CONS SCIMAGE EF Mod BP 58 % CONS SCIMAGE Anatomical Region Laterality Modality Ultrasound 11/24/2024 10:0 8 AM CDT Narrative 11/25/2024 7:49 PM CDT Transthoracic Echocardiographic Report Patient Name: EMILY LOVE J : 1965 (59y 9m) Gender: F Study Date: 11/24/2024 10:08:51 AM Ht(Inch): 62 Wt(Lb): 108 BSA: 1.46 [employer] Sales Representative: Sandy Cardona MITZY Order Provider: ALEXX FERRER Heart Rate: 65 BMI: 19.75 BP: 110 / 80 Ref Provider: ALEXX FERRER PROCEDURES: Echocardiographic Report: ([id number]) Transthoracic complete echo, 2D, spectral and tissue Doppler, color flow Doppler, M-mode. INDICATIONS: R06.00 Dyspnea, unspecified and R06.89 Other abnormalities of breathing. FINDINGS: Left Ventricle: Normal left ventricular cavity size. Normal Left ventricular wall thickness. Normal left ventricular systolic function. The Ejection Fraction (Cast's) is measured at 58 %. The Ejection Fraction is visually estimated to be 55-60 %. Diastolic Function Left ventricular diastolic parameters are consistent with Grade I diastolic dysfunction (normal LA pressure). Regional Wall Motion: There are no regional wall motion abnormalities. Right Ventricle: Normal right ventricular size. Normal right ventricular systolic function. Left Atrium: The left atrium is normal in size. Right Atrium: The right atrium is normal in size. Atrial Septum: The interatrial septum is normal in appearance. Mitral Valve: There is trace to mild mitral valve regurgitation. No mitral valve stenosis. The mitral valve area by pressure half-time is 3.3 cm2. The mean transmitral gradient is: 1 mmHg. Aortic Valve: Trileaflet aortic valve. No aortic regurgitation seen. No aortic valve stenosis. Tricuspid Valve: There is trace to mild tricuspid valve regurgitation. The estimated right ventricular systolic pressure is 24 mmHg. Normal estimated pulmonary artery systolic pressure. Pulmonic Valve: No evidence of pulmonic regurgitation. Pericardium: Normal pericardium without evidence of pericardial effusion. Aorta: Normal aortic root. IVC: IVC is normal in size. IVC Collapses normally with inspiration. The IVC (inferior vena cava) was <2.1 cm and collapsibility >50%. The estimated RA pressure is 3 mmHg. CONCLUSIONS: 1. Normal left ventricular cavity size. Normal Left ventricular wall thickness. Normal left ventricular systolic function. The Ejection Fraction (Cast's) is measured at 58 %. The Ejection Fraction is visually estimated to be 55-60 %. Diastolic Function Left ventricular diastolic parameters are consistent with Grade I diastolic dysfunction (normal LA pressure). MEASUREMENTS: 2D/MM Value Range Doppler Value LVIDd 2D 3.88 cm [ 3.50 - 5.70 ] AV Peak Jaylen 1.16 m/s LVIDs 2D 2.82 cm [ 3.10 - 4.60 ] AV Peak PG 5.38 mmHg IVSd 2D 0.66 cm [ 0.60 - 1.20 ] LVOT Peak Jaylen 0.92 m/s LVPWd 2D 0.84 cm [ 0.60 - 1.10 ] LVOT Peak PG 3.39 mmHg LV Thickness Ratio 0.79 LVOT Diam 1.90 cm LV Mass 2D 83.43 g PAUL Vmax 2.25 cm2 LV Mass Index 2D 57.14 g/m2 MV E Peak Jaylen 0.50 m/s RWT 0.43 MV A Peak Jaylen 0.66 m/s EDV Mod BP 54.70 ml [ 46.00 - 106.00 ] MV E/A 0.80 ratio LV EDV Index 37.47 ml/m2 MV Peak Jaylen 1.02 m/s ESV Mod BP 22.90 ml [ 14.00 - 42.00 ] MV Peak PG 4.16 mmHg EF Mod BP 58 % [ 54 - 74 ] MV Mean PG 1.00 mmHg Visually Estimated EF 55-60 % MV VTI 22.10 cm LA Dimension 2D 2.70 cm [ 1.90 - 4.00 ] MV PHT Peak Jaylen 1.01 m/s LA Length 2C 4.38 cm MV PHT 67.00 ms LA Length 4C 4.41 cm MVA PHT 3.28 cm2 LA Volume BP 38.10 ml MV Decel Time 264.00 msec LA Volume Index 26.10 ml/m2 [ 16.00 - 34.00 ] Med E` Jaylen 0.08 m/s TAPSE 2.10 cm [ 1.71 - 5.00 ] Lat E` Jaylen 0.09 m/s AoR Diam 2D 2.80 cm [ 2.00 - 3.70 ] Average E/E` 588.24 Ao Root Index 1.92 cm/m2 [ 1.00 - 2.00 ] TV Peak Jaylen 0.50 m/s TV Peak PG 1.00 mmHg RV S` 0.10 m/s TR Peak Jaylen 2.27 m/s TR Peak PG 20.6 mmHg RA Pressure 3.00 mmHg RVSP 23.60 mmHg PV Peak Jaylen 0.89 m/s PV Peak PG 3.17 mmHg - ATTESTATION: I have reviewed and interpreted the pertinent images and measurements of this study. I attest to the conclusions in the final report that is provided above. DISCLAIMER: The study images and the final report will be retained in the patient chart by the Echo Laboratory for the legally required time period. This chart constitutes the legal record of any testing performed. Electronically Signed By: Kar Reza MD 11/25/2024 7:48:40 PM CDT Procedure Note Kar Reza MD - 11/25/2024 Transthoracic Echocardiographic Report Patient Name: EMILY LOVE J : 1965 (59y 9m) Gender: F Study Date: 11/24/2024 10:08:51 AM Ht(Inch): 62 Wt(Lb): 108 BSA: 1.46 [employer] Sales Representative: Sandy Cardona RDCS Order Provider: ALEXX FERRER Heart Rate: 65 BMI: 19.75 BP: 110 / 80 Ref Provider: ALEXX FERRER PROCEDURES: Echocardiographic Report: ([id number]) Transthoracic complete echo, 2D,spectral and tissue Doppler, color flow Doppler, M-mode. INDICATIONS: R06.00 Dyspnea, unspecified and R06.89 Other abnormalities of breathing. FINDINGS: Left Ventricle: Normal left ventricular cavity size. Normal Leftventricular wall thickness. Normal left ventricular systolic function. The EjectionFraction (Cast's) is measured at 58 %. The Ejection Fraction is visually estimated to be55-60 %. Diastolic Function Left ventricular diastolic parameters are consistent with Grade Idiastolic dysfunction (normal LA pressure). Regional Wall Motion: There are no regional wall motion abnormalities. Right Ventricle: Normal right ventricular size. Normal right ventricularsystolic function. Left Atrium: The left atrium is normal in size. Right Atrium: The right atrium is normal in size. Atrial Septum: The interatrial septum is normal in appearance. Mitral Valve: There is trace to mild mitral valve regurgitation. No mitralvalve stenosis. The mitral valve area by pressure half-time is 3.3 cm2. The meantransmitral gradient is: 1 mmHg. Aortic Valve: Trileaflet aortic valve. No aortic regurgitation seen. Noaortic valve stenosis. Tricuspid Valve: There is trace to mild tricuspid valve regurgitation. Theestimated right ventricular systolic pressure is 24 mmHg. Normal estimated pulmonaryartery systolic pressure. Pulmonic Valve: No evidence of pulmonic regurgitation. Pericardium: Normal pericardium without evidence of pericardialeffusion. Aorta: Normal aortic root. IVC: IVC is normal in size. IVC Collapses normally with inspiration. TheIVC (inferior vena cava) was <2.1 cm and collapsibility >50%. The estimated RA pressureis 3 mmHg. CONCLUSIONS: 1. Normal left ventricular cavity size. Normal Left ventricular wallthickness. Normal left ventricular systolic function. The Ejection Fraction (Cast's) ismeasured at 58 %. The Ejection Fraction is visually estimated to be 55-60 %. DiastolicFunction Left ventricular diastolic parameters are consistent with Grade I diastolicdysfunction (normal LA pressure). MEASUREMENTS: 2D/MM Value Range DopplerValue LVIDd 2D 3.88 cm [ 3.50 - 5.70 ] AV Peak Vel1.16 m/s LVIDs 2D 2.82 cm [ 3.10 - 4.60 ] AV Peak PG5.38 mmHg IVSd 2D 0.66 cm [ 0.60 - 1.20 ] LVOT PeakVel 0.92 m/s LVPWd 2D 0.84 cm [ 0.60 - 1.10 ] LVOT Peak PG3.39 mmHg LV Thickness Ratio 0.79 LVOT Diam1.90 cm LV Mass 2D 83.43 g PAUL Vmax2.25 cm2 LV Mass Index 2D 57.14 g/m2 MV E PeakVel 0.50 m/s RWT 0.43 MV A PeakVel 0.66 m/s EDV Mod BP 54.70 ml [ 46.00 - 106.00 ] MV E/A0.80 ratio LV EDV Index 37.47 ml/m2 MV Peak Vel1.02 m/s ESV Mod BP 22.90 ml [ 14.00 - 42.00 ] MV Peak PG4.16 mmHg EF Mod BP 58 % [ 54 - 74 ] MV Mean PG1.00 mmHg Visually Estimated EF 55-60 % MV VTI22.10 cm LA Dimension 2D 2.70 cm [ 1.90 - 4.00 ] MV PHT PeakVel 1.01 m/s LA Length 2C 4.38 cm MV PHT67.00 ms LA Length 4C 4.41 cm MVA PHT3.28 cm2 LA Volume BP 38.10 ml MV DecelTime 264.00 msec LA Volume Index 26.10 ml/m2 [ 16.00 - 34.00 ] Med E` Vel0.08 m/s TAPSE 2.10 cm [ 1.71 - 5.00 ] Lat E` Vel0.09 m/s AoR Diam 2D 2.80 cm [ 2.00 - 3.70 ] Average E/E`588.24 Ao Root Index 1.92 cm/m2 [ 1.00 - 2.00 ] TV Peak Vel0.50 m/s TV Peak PG 1.00 mmHg RV S` 0.10 m/s TR Peak Jaylen 2.27 m/s TR Peak PG 20.6 mmHg RA Pressure 3.00 mmHg RVSP 23.60 mmHg PV Peak Jaylen 0.89 m/s PV Peak PG 3.17 mmHg - ATTESTATION: I have reviewed and interpreted the pertinent images and measurements ofthis study. I attest to the conclusions in the final report that is provided above. DISCLAIMER: The study images and the final report will be retained in the patientchart by the Echo Laboratory for the legally required time period. This chart constitutesthe legal record of any testing performed. Electronically Signed By: Kar Reza MD 11/25/2024 7:48:40 PM CDT Alexx Ferrer MD CV ECHO PROCEDURES Final Result * ECG 12-LEAD (10/14/2024 2:50 PM CDT) Narrative Alexx Ferrer MD - 10/14/2024 2:50 PM CDT Alexx Ferrer MD 10/14/2024 3:24 PM ECG 12 lead Date/Time: 10/14/2024 2:50 PM Performed by: Alexx Ferrer MD Authorized by: Alexx Ferrer MD Rhythm: sinus rhythm Rate: normal QRS axis: normal Conduction: conduction normal ST Segments: ST segments normal T Waves: T waves normal Clinical impression: normal ECG Alexx Ferrer MD ECG ORDERABLES Edited Result - Final [...] ORDERABLES F inal Result Performing Organization Address [facility] Co de Phone Number MICHELLE [address] [address] * Troponin T high-sensitivity series (baseline, 2hr, 4hr, 6hr) (10/06/2024 7:41 PM CDT) [facility] Trop T hs <6 <=14 ng/L Comment: Interpretive Data For further hscTnT resources including the diagnostic algorithm and an aid in interpretation, copy and paste this link: https://nrl.testcatalog.org/show/hsTrop Current Interpretive Data last revised 2020. Blood 10/06/2024 7:41 PM CDT 10/06/2024 7:42 PM CDT us Keesha Capps MD LAB BLOOD ORDERABLES F inal Result Performing Organization Address [facility] Co de Phone Number MICHELLE [address] [address] * ECG 12 lead (10/06/2024 7:37 PM CDT) [facility] Ventricular Rate EKG/Min 66 BPM [facility] Atrial Rate 66 BPM [facility] FL-Interval (MSEC) 138 ms [facility] QRS-Interval (MSEC) 86 ms [facility] QT-Interval (MSEC) 410 ms [facility] QTc 429 ms [facility] P Lawrence 71 degrees [facility] R Lawrence 50 degrees [facility] T Lawrence 72 degrees [facility] Diagnosis Normal sinus rhythm Possible Left atrial enlargement Borderline ECG No previous ECGs available Confirmed by LARRY JIMENEZ M.D. ([id number]) on 10/07/2024 6:50:15 PM [facility] 10/06/2024 7:37 PM CDT 10/07/2024 6:50 PM CDT us Keesha Capps MD ECG ORDERABLES Final Result [facility] * CTA Chest Abdomen Pelvis (10/06/2024 [...] Esthela Lemons M.D. AT T: Report ID: [id number] Reading Location: [place] [address] Procedure Note Esthela Lemons MD - 10/06/2024 [...] Esthela Lemons M.D. AT T: Report ID: [id number] Reading Location: [place] [address] us Quoc Ríos MD IMG CT PROCEDURES Final Result * POCT creatinine for contrast evaluation (10/06/2024 6:06 PM CDT) Creatinine POC 0.70 0.60 - 1.10 mg/dL Blood 10/06/2024 6:06 PM CDT 10/06/2024 6:06 PM CDT us Notinfile Unknown POINT OF CARE TEST ORDERABLES Final Result MICHELLE [address] Department of Laboratories [place], [place] [id number] * eGFR (10/06/2024 6:03 PM CDT) eGFR [...] MD LAB BLOOD ORDERABLES Fi nal Result [facility] [address] [place] [address] * Differential, auto (10/06/2024 6:03 PM CDT) Neutrophil abs 3.87 1.50 - 6.50 K/cumm Imm gran abs 0.01 0.00 - 0.10 K/cumm [facility] Lymphocyte abs 1.70 0.80 - 3.30 K/cumm [facility] Monocyte abs 0.32 0.20 - 0.80 K/cumm [facility] Eosinophil abs 0.06 0.00 - 0.50 K/cumm [facility] Basophil abs 0.03 0.00 - 0.10 K/cumm [facility] Neutrophil pct 64.6 % [facility] Comment: Interpretive Data Percent cell count reference ranges are not reported, since discordance with absolute values may lead to misinterpretation of CBC data. Current Interpretive Data was last revised on 2017. Imm gran pct 0.2 % [facility] Comment: Interpretive Data Percent cell count reference ranges are not reported, since discordance with absolute values may lead to misinterpretation of CBC data. Current Interpretive Data was last revised on 2017. Lymphocyte pct 28.4 % [facility] Comment: Interpretive Data Percent cell count reference ranges are not reported, since discordance with absolute values may lead to misinterpretation of CBC data. Current Interpretive Data was last revised on 2017. Monocyte pct 5.3 % [facility] Comment: Interpretive Data Percent cell count reference ranges are not reported, since discordance with absolute values may lead to misinterpretation of CBC data. Current Interpretive Data was last revised on 2017. Eosinophil pct 1.0 % [facility] Comment: Interpretive Data Percent cell count reference ranges are not reported, since discordance with absolute values may lead to misinterpretation of CBC data. Current Interpretive Data was last revised on 2017. Basophil pct 0.5 % [facility] Comment: Interpretive Data Percent cell count reference ranges are not reported, since discordance with absolute values may lead to misinterpretation of CBC data. Current Interpretive Data was last revised on 2017. Blood 10/06/2024 6:03 PM CDT 10/06/2024 6:04 PM CDT Quoc Ríos MD LAB BLOOD ORDERABLES Fi nal Result Performing Organization Address [facility] Co de Phone Number [address] [employer] [place], [place] [id number] * (ABNORMAL) CBC with auto differential (10/06/2024 6:03 PM CDT) WBC 5.99 3.80 - 9.90 K/cumm Hgb 13.3 11.9 - 15.5 g/dL [facility] Hct 39.3 35.6 - 45.5 % [facility] Plt 247 150 - 400 K/cumm [facility] MPV 8.2(L) 9.1 - 12.3 fL [facility] RBC 4.38 3.90 - 5.20 M/cumm [facility] MCV 89.7 81.3 - 96.4 fL [facility] MCH 30.4 27.1 - 33.3 pg [facility] MCHC 33.8 32.3 - 35.7 g/dL [facility] RDW CV 14.5 11.1 - 14.9 % [facility] RDW SD 47.8 35.7 - 48.1 fL [facility] NRBC abs 0.00 0.00 - 0.01 K/cumm [facility] Blood 10/06/2024 6:03 PM CDT 10/06/2024 6:04 PM CDT Quoc Ríos MD LAB BLOOD ORDERABLES Fi nal Result Performing Organization Address City/[facility]/ZIP Co de Phone Number [address] [place] [address] * Comprehensive metabolic panel (10/06/2024 6:03 PM CDT) Sodium 136 135 - 145 mmol/L Potassium, pl 3.4 3.3 - 4.9 mmol/L [facility] Chloride 100 97 - 110 mmol/L [facility] CO2 25 22 - 32 mmol/L [facility] Anion gap 11 2 - 15 mmol/L [facility] BUN 16 6 - 25 mg/dL [facility] Creatinine 0.60 0.60 - 1.10 mg/dL [facility] Glucose 133 70 - 199 mg/dL [facility] Comment: Interpretive Data Fasting glucose >/= 126 [...] 2022. Calcium 9.5 8.5 - 10.3 mg/dL [facility] Bilirubin, total 0.3 0.1 - 1.2 mg/dL [facility] Protein, pl 7.2 6.5 - 8.5 g/dL [facility] Albumin 4.6 3.5 - 5.0 g/dL [facility] Alk phos 79 40 - 130 Units/L [facility] ALT 16 7 - 45 Units/L [facility] AST 18 10 - 45 Units/L [facility] Blood 10/06/2024 6:03 PM CDT 10/06/2024 6:04 PM CDT us Quoc Ríos MD LAB BLOOD ORDERABLES Fi nal Result MICHELLE [address] [facility] [place] [address] * CT Lung Cancer Screening (08/06/2024 4:40 [...] Dominic Gregory D.O. AP: AP Report ID: [id number] Reading Location: [place] [address] Procedure Note Dominic Gregory, DO - 08/17/2024 [...] Dominic Gregory D.O. AP: AP Report ID: [id number] Reading Location: [place] [address] Yoan Fernandez MD IMG CT PROCEDURES Final Resul t from Last 3 Months or Most Recently Relevant to Health Maintenance Insurance Care Teams Weigh Boss Relationship Specialty Start Date End Date Brett Wagner MD [address] [place] [id number] PCP - General Emergency Medicine 12/11/24
--- OUTSIDE RECORDS SUMMARY | 2024-12-11 15:14 | XMS_ITS | Clinical Summary ---
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 This disclosure is being madepursuant to the Care Everywhere program and may not contain all information available regarding this patient. Last updated 17.[employer] Allergies No known active allergies Medications * [...] Active vitamin D, ergocalciferol, (Drisdol) 1.25 MG (55338 UT) capsule Take 1 (one) capsule by [...] Description 11/06/2024 2:20 PM CDT Office Visit [facility] - Endocrinology [address] [place] [phone] Scarlet Mcleod MD Hypothyroidism, acquired (Primary Dx); Hyponatremia 11/06/2024 Travel from Last 3 Months Social History Tobacco Use Types Packs/Day Years Used Date Smoking Tobacco: Never Assessed Comments Unknown Sex and Gender Information Value Date Recorded Sex Assigned at Not on file 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 Gender Identity Not on file Sexual Orientation [...] st Contact Info) Description 03/09/2025 3:20 PM 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 Office Visit [facility] - Endocrinology [address] [place] [phone] Scarlet Mcleod MD [address] [place] [phone] Health Maintenance Due Date Last Done [...] 2015 ZOSTER VACCINE (1 of 2) 2015 DEPRESSION SCREENING 04/08/2024 COVID-19 VACCINE (1 - 2023-2 5 season) 2024 INFLUENZA VACCINE (#1) 2024 PAP SMEAR 08/18/2027 [...] patient's age to complete this [place] [id number] Care Teams Voting Machine Mechanic Relationship Specialty Start Date End Date Brett Wagner MD [facility] [address] [address] PCP - General Family Medicine 07/24/24
== END 2024-12-11 15:07 | disposition home or self-care (01) ==
LOC: ANHFOHIMG 15:11
PROVIDERS: PCP Emergency Medicine; Visit Provider Obstetrics & Gynecology
DX: Z12.31 Encounter for screening mammogram for malignant neoplasm of breast (principal)
CPT/HCPCS: 77063; 77067

== ENCOUNTER 2024-12-30 15:10 | Outpatient (CLI) | payer OTHER, SELFPAY ==
--- NOTE | ~2024-12-30 | XR_ITS ---
XR lumbar spine min 4V Indication: Hypothyroidism, unspecified; HX OSTEOPEROSIS Comparison: None Findings: The vertebral heights are intact. No fracture or subluxation. The disc heights are intact. Soft tissues unremarkable Impression: No acute abnormality. Reviewed, dictated and finalized at location A. Impression: No acute abnormality.
--- NOTE | ~2024-12-30 | XR_ITS ---
Corrected Report 12/31/2024 Correction to Order and Title See Bolded Text Below This report was recreated on 12/31/2024 Original report was signed by Markos Rosa M.D. on 12/30/2024 15:51 CDT. XR thoracic spine 3V Indication: Hypothyroidism, unspecified; HX OSTEOPEROSIS Comparison: None Findings: The vertebral heights are intact. No fracture or subluxation. The disc heights are intact. Soft tissues unremarkable Impression: No acute abnormality. Reviewed, dictated and finalized at location A. Impression: No acute abnormality.
--- NOTE | ~2024-12-30 | XR_ITS ---
XR_[id number]_CR Indication: Hypothyroidism, unspecified; HX OSTEOPEROSIS Comparison: None Findings: Grade 1 retrolisthesis C4 on C5. Severe loss of disc height C4-5 C5-6 and C6-7. Soft tissues unremarkable Impression: No acute abnormality. Reviewed, dictated and finalized at location A. Impression: No acute abnormality.
== END 2024-12-30 15:11 | disposition home or self-care (01) ==
LOC: MICIMG 15:12
PROVIDERS: PCP Emergency Medicine; Visit Provider Internal Medicine Endocrinology, Diabetes & Metabolism
DX: E03.9 Hypothyroidism, unspecified (principal); M81.0 Age-related osteoporosis without current pathological fracture
CPT/HCPCS: 72040; 72072; 72110

== ENCOUNTER 2025-01-07 15:13 | Outpatient (CLI) | payer OTHER, SELFPAY ==
--- NOTE | ~2025-01-07 | XR_ITS ---
EXAMINATION: XR foot LT 2V, 01/07/2025 15:40 CDT HISTORY: Age-related osteoporosis without current pathological fx COMPARISON: No comparisons available. Findings: No acute fracture or malalignment. No significant degenerative changes. Soft tissues unremarkable. Impression: No acute fracture or malalignment. Reviewed, dictated and finalized at location P. Impression: No acute fracture or malalignment.
== END 2025-01-07 15:14 | disposition home or self-care (01) ==
LOC: MICIMG 15:15
PROVIDERS: PCP Internal Medicine Endocrinology, Diabetes & Metabolism; Visit Provider Internal Medicine Endocrinology, Diabetes & Metabolism
DX: M81.0 Age-related osteoporosis without current pathological fracture (principal); E87.1 Hypo-osmolality and hyponatremia; E03.9 Hypothyroidism, unspecified
CPT/HCPCS: 73620